=== PATIENT | male | born 1955 | race Hispanic/Latino ===

== ENCOUNTER 2017-08-30 10:43 | Inpatient (IN) | payer MEDICARE ==
[2017-08-30 11:42] LABS: Alanine Aminotransferase 8 units/L (7-56); Albumin 3.3 g/dL (3.9-5); Albumin/Globulin Ratio 0.8 %; Alkaline Phosphatase 56 units/L (35-129); Anion Gap 13 mmol/L; BUN/Creatinine Ratio 26; Basophils % (Auto) 0.4 % (0.0-1.8); Blood Urea Nitrogen 26 mg/dL (9-20); Calcium 9.2 mg/dL (8.4-10.2); Carbon Dioxide 32 mmol/L (22-30); Chloride 101.2 mmol/L (98-107); Eosinophils % (Auto) 0.5 % (0.0-4.3); Glucose 142 mg/dL (75-100); Hematocrit 32.6 % (35.5-45.6); Hemoglobin 11.1 gm/dl (11.8-15.2); Lipase 28 units/L (13-60); Mean Corpuscular HGB Conc 34 % (32-34); Mean Corpuscular Hemoglobin 29 pg (28-32); Mean Corpuscular Volume 84 fl (84-94); Platelet Count 222 K/mm3 (140-440); Potassium 4.4 mmol/L (3.6-5.0); Red Cell Distribution Width 14.9 % (13.2-15.2); Sodium 142 mmol/L (137-145); Total Protein 7.4 g/dL (6.3-8.2); White Blood Count 5.7 K/mm3 (4.5-11.0)
[2017-08-30] MEDS ORDERED: ATIVAN PO ONE (12:02)
--- NOTE | 2017-08-30 12:10 | Emergency Department Report ---
ED Anxiety HPI - General Chief Complaint: Anxiety Stated Complaint: MEDICAL CLEARENCE Time Seen by Provider: 08/30/17 11:42 Source: patient Mode of arrival: Wheelchair - History of Present Illness Initial Comments: 62-year-old male with a history of anxiety. Patient was sent from his primary care office with concern for worsening anxiety and some swelling to left lower quadrant. No fevers chills nausea vomiting. Patient denies constipation. MD Complaint: anxiety -: Gradual Previous History of Same: Yes Severity: mild Quality: constant Associated symptoms: diaphoresis, anorexia. denies: shortness of breath, palpitations, cough, fever/chills, headaches - Related Data Home Medications: Home Medications Medication Instructions Recorded Confirmed Last Taken Unobtainable [Unobtainable] 10/14/13 10/14/13 Unknown Allergies/Adverse Reactions: Allergies Allergy/AdvReac Type Severity Reaction Status Date / Time guaifenesin [From Mucinex] AdvReac Intermediate Shortness Verified 08/30/17 10: 52 of Breath ED Review of Systems ROS: Stated complaint: MEDICAL CLEARENCE Other details as noted in HPI Comment: All other systems reviewed and negative Constitutional: denies: chills, fever ENT: denies: ear pain, throat pain Respiratory: denies: cough, shortness of breath, wheezing Cardiovascular: denies: chest pain, palpitations Endocrine: no symptoms reported Gastrointestinal: denies: abdominal pain, nausea, diarrhea Genitourinary: denies: urgency, dysuria Musculoskeletal: denies: back pain, joint swelling, arthralgia Skin: denies: rash, lesions Neurological: denies: headache, weakness, paresthesias Psychiatric: denies: anxiety, depression Hematological/Lymphatic: denies: easy bleeding, easy bruising ED Past Medical Hx - Past Medical History Hx Hypertension: No Hx Psychiatric Treatment: Yes (Anxiety) Additional medical history: Chronic neck and back pain from fracture - Surgical History Past Surgical History?: Yes Additional Surgical History: Neck and back surgery - Family History Family history: no significant - Social History Smoking Status: Current Every Day Smoker Substance Use Type: None - Medications Home Medications: Home Medications Medication Instructions Recorded Confirmed Last Taken Type Unobtainable [Unobtainable] 10/14/13 10/14/13 Unknown History ED Physical Exam - General Limitations: Physical Limitation General appearance: alert, cachectic - Head Head exam: Present: atraumatic, normocephalic - Eye Eye exam: Present: normal appearance. Absent: scleral icterus, conjunctival injection - ENT ENT exam: Present: mucous membranes moist - Neck Neck exam: Present: normal inspection - Respiratory Respiratory exam: Present: normal lung sounds bilaterally. Absent: respiratory distress - Cardiovascular Cardiovascular Exam: Present: regular rate, normal rhythm. Absent: systolic murmur, diastolic murmur, rubs, gallop - GI/Abdominal GI/Abdominal exam: Present: soft, distended (LLQ), normal bowel sounds. Absent : tenderness, guarding, rebound, rigid, mass - Rectal Rectal exam: Present: deferred - Extremities Exam Extremities exam: Present: normal inspection - Back Exam Back exam: Present: normal inspection - Neurological Exam Neurological exam: Present: alert, oriented X3 - Psychiatric Psychiatric exam: Present: normal affect, normal mood - Skin Skin exam: Present: warm, dry, intact, normal color. Absent: rash ED Course Vital Signs 08/30/17 08/30/17 10:48 11:39 Temperature 97.9 F 98.1 F Pulse Rate 94 H 78 Respiratory 16 18 Rate Blood Pressure 102/60 Blood Pressure 93/54 [Left] O2 Sat by Pulse 95 95 Oximetry ED Medical Decision Making - Lab Data Result diagrams: 08/30/17 11:11 08/30/17 11:11 Laboratory Results - last 24 hr 08/30/17 08/30/17 11:11 11:11 WBC 5.7 RBC 3.90 Hgb 11.1 L Hct 32.6 L MCV 84 MCH 29 MCHC 34 RDW 14.9 Plt Count 222 Lymph % (Auto) 8.0 L [place] % (Auto) 7.2 Eos % (Auto) 0.5 Baso % (Auto) 0.4 Lymph # 0.5 L [place] # 0.4 Eos # 0.0 Baso # 0.0 Seg Neutrophils % 83.9 H Seg Neutrophils # 4.8 Sodium 142 Potassium 4.4 Chloride 101.2 Carbon Dioxide 32 H Anion Gap 13 BUN 26 H Creatinine 1.0 Estimated GFR > 60 BUN/Creatinine Ratio 26 Glucose 142 H Calcium 9.2 Total Bilirubin 0.30 AST 14 ALT 8 Alkaline Phosphatase 56 Total Protein 7.4 Albumin 3.3 L Albumin/Globulin Ratio 0.8 Lipase 28 - Medical Decision Making 62-year-old male here with complaint of anxiety and left abdominal fullness. No fevers chills nausea vomiting. He's been very anxious over the course of last few days and is having his primary care sent him to the emergency department. According to family the primary care feels that he needs to be admitted for further rehabilitation. Plan to check labs and x-ray and will reassess. Discussed with Dr. Alas and plan to admit to the hospital. Portions of this chart were dictated with dictation software. There may be dictation errors contained within this note. Critical care attestation.: If time is entered above; I have spent that time in minutes in the direct care of this critically ill patient, excluding procedure time. ED Disposition Clinical Impression: Failure to thrive Disposition: DC-09 OP ADMIT IP TO THIS HOSP Is pt being admited?: Yes Condition: Stable Referrals: PRIMARY CARE, [Primary Care Provider] - 3-5 Days
--- NOTE | 2017-08-30 13:04 | XRay Report ---
Abdominal series: History: Abdominal pain. Findings: Emphysema. No acute lung changes. No free intraperitoneal air. No bowel distention or wall thickening. No radiopaque calculus or abnormal calcification. Gastrostomy tube in place. Impression: No acute changes. No acute abdominal findings
[2017-08-30 13:27] LABS: Bilirubin,Urine NEG (Negative); Blood,Urine NEG (Negative); Ketones,Urine NEG (Negative); Leukocyte Esterase,Urine NEG (Negative); Mucus,Urine FEW /HPF; Nitrite,Urine NEG (Negative); Protein,Urine <15 mg/dL mg/dL (Negative); Urobilinogen,Urine < 2.0 mg/dL (<2.0)
[2017-08-30] MEDS ORDERED: PERCOCET 5/325 PO ONE (13:56)
[2017-08-30] MEDS ORDERED: PROVENTIL IH PRN (15:15)
[2017-08-30] MEDS ORDERED: NON-FORMULARY (Oxycodone Hcl [Oxycodone Tab] 10 MG) PO PRN (15:15)
[2017-08-30] MEDS ORDERED: CEPHULAC FEEDTUBE PRN (15:15)
[2017-08-30] MEDS ORDERED: MILK OF MAGNESIA PO PRN (15:19)
[2017-08-30] MEDS ORDERED: ZOFRAN IV PRN (15:19)
[2017-08-30] MEDS ORDERED: TYLENOL PO PRN (15:19)
[2017-08-30] MEDS ORDERED: DULCOLAX PR PRN (15:19)
[2017-08-30] MEDS ORDERED: AMBIEN PO PRN (15:25)
--- NOTE | 2017-08-30 15:35 | History and Physical Report ---
History of Present Illness Date of examination: 08/30/17 Date of admission: 08/30/17 Chief complaint: Unable to take care of himself. 2 months History of present illness: 62 y/o male with hx of C spine fracture a few months ago unable to take care of himsel for last couple of months and gradualdecline in his staus along with poor po intake and weight loss sent from my office for declining ADL' s and family unable to take care of himself.No fever /Chills Past History Past Medical History: COPD, GERD, hyperlipidemia, other (PN BPH) Past Surgical History: Other (C spine surgery) Social history: lives with family, smoking, full code Family history: hypertension Medications and Allergies Allergies Allergy/AdvReac Type Severity Reaction Status Date / Time guaifenesin [From Mucinex] AdvReac Intermediate Shortness Verified 08/30/17 10: 52 of Breath Home Medications Medication Instructions Recorded Confirmed Last Taken Type ALBUTEROL NEB's [Proventil] 2.5 mg IH QID 08/30/17 08/30/17 Unknown History Cyclobenzaprine [Flexeril] 10 mg FEEDTUBE TID PRN 08/30/17 08/30/17 Unknown History Fenofibrate [Tricor] 145 mg FEEDTUBE QDAY 08/30/17 08/30/17 Unknown History LORazepam [Ativan] 1 mg FEEDTUBE TID PRN 08/30/17 08/30/17 Unknown History Lactulose [Cephulac] 30 ml FEEDTUBE DAILY PRN 08/30/17 08/30/17 Unknown History Omeprazole 40 mg FEEDTUBE DAILY 08/30/17 08/30/17 Unknown History Oxycodone HCl [oxyCODONE TAB] 10 mg PO Q6H PRN 08/30/17 08/30/17 Unknown History Pregabalin [Lyrica] 75 mg FEEDTUBE BID 08/30/17 08/30/17 Unknown History Tamsulosin [Flomax] 0.4 mg FEEDTUBE QDAY 08/30/17 08/30/17 Unknown History Temazepam 30 mg FEEDTUBE HS 08/30/17 08/30/17 Unknown History risperiDONE [RisperDAL] 1 mg FEEDTUBE HS 08/30/17 08/30/17 Unknown History Active Meds: Active Medications Acetaminophen (Tylenol) 650 mg PO Q4H PRN PRN Reason: Pain MILD(1-3)/Fever >100.5/BYNUM Albuterol (Proventil) 2.5 mg IH Q6HRT PRN PRN Reason: Wheezing Cyclobenzaprine HCl (Flexeril) 10 mg FEEDTUBE TID PRN PRN Reason: Muscle Spasm Fenofibrate (Tricor) 145 mg FEEDTUBE QDAY NUZHAT Lactulose (Cephulac) 20 gm FEEDTUBE DAILY PRN PRN Reason: Constipation Lorazepam (Ativan) 1 mg FEEDTUBE TID PRN PRN Reason: Anxiety Miscellaneous Medication (Omeprazole [Omeprazole]) 40 mg FEEDTUBE DAILY NUZHAT Miscellaneous Medication (Oxycodone Hcl [Oxycodone Tab]) 10 mg PO Q6H PRN PRN Reason: Pain Pregabalin (Lyrica) 75 mg FEEDTUBE BID NUZHAT Review of Systems All systems: negative Constitutional: weight loss, no weight gain, no fever, no chills, no sweats, no night sweats Ears, nose, mouth and throat: no hoarseness, no sore throat Cardiovascular: no chest pain, no orthopnea, no palpitations, no rapid/ irregular heart beat, no lightheadedness, no shortness of breath Respiratory: no cough, no cough with sputum, no excessive sputum, no hemoptysis , no shortness of breath, no dyspnea on exertion Gastrointestinal: no abdominal pain, no nausea, no vomiting, no diarrhea Genitourinary Male: no dysuria, no hematuria, no flank pain, no discharge, no urinary frequency, no urinary hesitancy Rectal: no pain Musculoskeletal: neck stiffness, neck pain, arm numbness/tingling, low back pain , leg numbness/tingling Integumentary: no rash, no pruritis, no redness, no sores, no wounds, no jaundice, no boils, no blisters Neurological: no seizures, no syncope Psychiatric: anxiety, change in sleep habits Endocrine: no cold intolerance, no heat intolerance, no polyphagia, no excessive thirst Hematologic/Lymphatic: no easy bruising, no easy bleeding Allergic/Immunologic: no urticaria, no allergic rhinitis, no wheezing Exam - Physical Exam Narrative exam: Mild distress sec to pain - Constitutional Vitals: Temp Pulse Resp BP Pulse Ox 98.1 F 78 16 101/58 98 08/30/17 11:39 08/30/17 13:41 08/30/17 13:41 08/30/17 13:41 08/30/17 13:41 General appearance: Present: mild distress, well-nourished - EENT Eyes: Present: PERRL ENT: hearing intact, clear oral mucosa - Neck Neck: Present: supple, normal ROM - Respiratory Respiratory effort: normal Respiratory: bilateral: CTA - Cardiovascular Heart rate: 80 Rhythm: regular Heart Sounds: Present: S1 & S2. Absent: rub, click - Extremities Extremities: no ischemia, pulses intact, pulses symmetrical, No edema Peripheral Pulses: within normal limits - Abdominal General gastrointestinal: Present: soft, non-tender, non-distended, normal bowel sounds Male genitourinary: Present: normal - Integumentary Integumentary: Present: clear, warm, dry - Musculoskeletal Musculoskeletal: gait normal, strength equal bilaterally - Psychiatric Psychiatric: appropriate mood/affect, intact judgment & insight - Neurologic Neurologic: CNII-XII intact, moves all extremities - Allied Health Allied health notes reviewed: nursing, case management Results - Labs CBC & Chem 7: 08/31/17 06:02 08/30/17 11:11 Labs: Laboratory Last Values WBC 5.7 K/mm3 (4.5-11.0) 08/30/17 11:11 RBC 3.90 M/mm3 (3.65-5.03) 08/30/17 11:11 Hgb 11.1 gm/dl (11.8-15.2) L 08/30/17 11:11 Hct 32.6 % (35.5-45.6) L 08/30/17 11:11 MCV 84 fl (84-94) 08/30/17 11:11 MCH 29 pg (28-32) 08/30/17 11:11 MCHC 34 % (32-34) 08/30/17 11:11 RDW 14.9 % (13.2-15.2) 08/30/17 11:11 Plt Count 222 K/mm3 (140-440) 08/30/17 11:11 Lymph % (Auto) 8.0 % (13.4-35.0) L 08/30/17 11:11 [place] % (Auto) 7.2 % (0.0-7.3) 08/30/17 11:11 Eos % (Auto) 0.5 % (0.0-4.3) 08/30/17 11:11 Baso % (Auto) 0.4 % (0.0-1.8) 08/30/17 11:11 Lymph # 0.5 K/mm3 (1.2-5.4) L 08/30/17 11:11 [place] # 0.4 K/mm3 (0.0-0.8) 08/30/17 11:11 Eos # 0.0 K/mm3 (0.0-0.4) 08/30/17 11:11 Baso # 0.0 K/mm3 (0.0-0.1) 08/30/17 11:11 Seg Neutrophils % 83.9 % (40.0-70.0) H 08/30/17 11:11 Seg Neutrophils # 4.8 K/mm3 (1.8-7.7) 08/30/17 11:11 Sodium 142 mmol/L (137-145) 08/30/17 11:11 Potassium 4.4 mmol/L (3.6-5.0) 08/30/17 11:11 Chloride 101.2 mmol/L (98-107) 08/30/17 11:11 Carbon Dioxide 32 mmol/L (22-30) H 08/30/17 11:11 Anion Gap 13 mmol/L 08/30/17 11:11 BUN 26 mg/dL (9-20) H 08/30/17 11:11 Creatinine 1.0 mg/dL (0.8-1.5) 08/30/17 11:11 Estimated GFR > 60 ml/min 08/30/17 11:11 BUN/Creatinine Ratio 26 % 08/30/17 11:11 Glucose 142 mg/dL (75-100) H 08/30/17 11:11 Calcium 9.2 mg/dL (8.4-10.2) 08/30/17 11:11 Total Bilirubin 0.30 mg/dL (0.1-1.2) 08/30/17 11:11 AST 14 units/L (5-40) 08/30/17 11:11 ALT 8 units/L (7-56) 08/30/17 11:11 Alkaline Phosphatase 56 units/L (35-129) 08/30/17 11:11 Total Protein 7.4 g/dL (6.3-8.2) 08/30/17 11:11 Albumin 3.3 g/dL (3.9-5) L 08/30/17 11:11 Albumin/Globulin Ratio 0.8 % 08/30/17 11:11 Lipase 28 units/L (13-60) 08/30/17 11:11 Urine Color Yellow (Yellow) 08/30/17 12:41 Urine Turbidity Clear (Clear) 08/30/17 12:41 Urine pH 7.0 (5.0-7.0) 08/30/17 12:41 Ur Specific [place] 1.017 (1.003-1.030) 08/30/17 12:41 Urine Protein <15 mg/dl mg/dL (Negative) 08/30/17 12:41 Urine Glucose (UA) Neg mg/dL (Negative) 08/30/17 12:41 Urine Ketones Neg mg/dL (Negative) 08/30/17 12:41 Urine Blood Neg (Negative) 08/30/17 12:41 Urine Nitrite Neg (Negative) 08/30/17 12:41 Urine Bilirubin Neg (Negative) 08/30/17 12:41 Urine Urobilinogen < 2.0 mg/dL (<2.0) 08/30/17 12:41 Ur Leukocyte Esterase Neg (Negative) 08/30/17 12:41 Urine WBC (Auto) 3.0 /HPF (0.0-6.0) 08/30/17 12:41 Urine RBC (Auto) 1.0 /HPF (0.0-6.0) 08/30/17 12:41 U Epithel Cells (Auto) < 1.0 /HPF (0-13.0) 08/30/17 12:41 Amorphous Crystals Few 08/30/17 12:41 Urine Mucus Few /HPF 08/30/17 12:41 - Imaging and Cardiology EKG: report reviewed Assessment and Plan Advance Directives: Yes (Full code) VTE prophylaxis?: Chemical Plan of care discussed with patient/family: Yes - Patient Problems (1) Failure to thrive Current Visit: Yes Status: Acute Qualifiers: Failure to thrive age range: in adult Qualified Code(s): R62.7 - Adult failure to thrive Plan to address problem: Severe deterioration from last 6 months since spine surgery.Unable to take care of himself and family unable to take care of himself.Will benefit from SNF placement (2) Chronic pain due to injury Current Visit: Yes Status: Chronic Plan to address problem: Continue his pain meds (3) [place] (generalized anxiety disorder) Current Visit: Yes Status: Chronic Plan to address problem: Continue anxiolytics (4) HLD (hyperlipidemia) Current Visit: Yes Status: Chronic Qualifiers: Hyperlipidemia type: mixed hyperlipidemia Qualified Code(s): E78.2 - Mixed hyperlipidemia Plan to address problem: Cont fenofibrated (5) GERD (gastroesophageal reflux disease) Current Visit: Yes Status: Chronic Qualifiers: Esophagitis presence: without esophagitis Qualified Code(s): K21.9 - Gastro -esophageal reflux disease without esophagitis Plan to address problem: Cont ppi's (6) Peripheral neuropathy Current Visit: Yes Status: Chronic Qualifiers: Peripheral neuropathy type: polyneuropathy, unspecified Qualified Code(s): G62.9 - Polyneuropathy, unspecified Plan to address problem: Cint Lyrica (7) BPH (benign prostatic hyperplasia) Current Visit: Yes Status: Chronic Qualifiers: Lower urinary tract symptom presence: symptoms present Lower urinary tract symptom detail: urinary hesitancy Qualified Code(s): N40.1 - Benign prostatic hyperplasia with lower urinary tract symptoms; R39.11 - Hesitancy of micturition ; R39.11 - Hesitancy of micturition Plan to address problem: Cont Flomax (8) Discharge planning issues Current Visit: Yes Status: Acute Plan to address problem: Patient needs SNF/alternative arrangements.CM consulted (9) DVT prophylaxis Current Visit: Yes Status: Acute Plan to address problem: on lovenox
[2017-08-30] MEDS ORDERED: D5NS 1,000 ML IV SCH (16:00)
[2017-08-30] MEDS ORDERED: LOVENOX SUB-Q SCH (16:00)
[2017-08-30] MEDS ORDERED: DILAUDID ONE (17:28)
[2017-08-30] MEDS: DILAUDID IV PRN (17:29)
[2017-08-30] MEDS: ROXICODONE PO PRN (19:17)
[2017-08-30] MEDS: LOVENOX SUB-Q SCH (19:18)
[2017-08-30] MEDS: PROTONIX FEEDTUBE SCH (19:18)
[2017-08-30] MEDS ORDERED: SODIUM BICARBONATE FEEDTUBE PRN (20:23)
[2017-08-30] MEDS ORDERED: SIMPLE SYRUP FEEDTUBE PRN ×2 (20:23)
[2017-08-30] MEDS ORDERED: PANCREAZE DR 10,500 UNIT FEEDTUBE PRN (20:23)
[2017-08-30] MEDS: FLEXERIL FEEDTUBE PRN (22:29)
[2017-08-30] MEDS: LYRICA FEEDTUBE SCH (22:29)
[2017-08-30] MEDS: ATIVAN FEEDTUBE PRN (22:29)
[2017-08-31] MEDS: ROXICODONE PO PRN ×2 (03:01→09:28)
[2017-08-31 06:35] LABS: Basophils % (Auto) 0.6 % (0.0-1.8); Eosinophils % (Auto) 1.3 % (0.0-4.3); Hematocrit 32.8 % (35.5-45.6); Mean Corpuscular HGB Conc 34 % (32-34); Mean Corpuscular Hemoglobin 28 pg (28-32); Mean Corpuscular Volume 85 fl (84-94); Platelet Count 193 K/mm3 (140-440); Red Blood Count 3.88 M/mm3 (3.65-5.03); Red Cell Distribution Width 14.8 % (13.2-15.2); White Blood Count 5.2 K/mm3 (4.5-11.0)
[2017-08-31 08:36] LABS: Alanine Aminotransferase 8 units/L (7-56); Albumin 3.2 g/dL (3.9-5); Albumin/Globulin Ratio 0.9 %; Alkaline Phosphatase 52 units/L (35-129); Anion Gap 13 mmol/L; BUN/Creatinine Ratio 26; Blood Urea Nitrogen 23 mg/dL (9-20); Calcium 9.3 mg/dL (8.4-10.2); Carbon Dioxide 33 mmol/L (22-30); Chloride 102.1 mmol/L (98-107); Glucose 100 mg/dL (75-100); Sodium 144 mmol/L (137-145); Total Protein 6.9 g/dL (6.3-8.2)
[2017-08-31] MEDS: LOVENOX SUB-Q SCH (09:26)
[2017-08-31] MEDS: LYRICA FEEDTUBE SCH ×2 (09:26→22:29)
[2017-08-31] MEDS: FLOMAX PO SCH (09:26)
[2017-08-31] MEDS: TRICOR FEEDTUBE SCH (09:26)
[2017-08-31] MEDS: ATIVAN FEEDTUBE PRN ×3 (09:27→20:43)
[2017-08-31] MEDS: PROTONIX FEEDTUBE SCH (09:27)
[2017-08-31] MEDS: HABITROL TD SCH (09:27)
[2017-08-31] MEDS ORDERED: NON-FORMULARY (Omeprazole [Omeprazole] 40 MG) FEEDTUBE SCH (10:00)
[2017-08-31] MEDS ORDERED: PANCREAZE DR 10,500 UNIT FEEDTUBE PRN (11:39)
[2017-08-31] MEDS ORDERED: SODIUM BICARBONATE FEEDTUBE PRN (11:39)
[2017-08-31] MEDS ORDERED: SIMPLE SYRUP FEEDTUBE PRN ×2 (11:39)
[2017-08-31] MEDS: DILAUDID IV PRN ×2 (13:36→20:47)
--- NOTE | 2017-08-31 13:47 | Progress Note ---
Assessment and Plan Assessment and plan: 62 y/o male with hx of C spine fracture a few months ago unable to take care of himself for last couple of months and gradual decline in his status along with poor po intake and weight loss sent from pcp office for declining ADL's and family unable to take care of himself.No fever /Chills (1) Failure to thrive Current Visit: Yes Status: Acute Qualifiers: Failure to thrive age range: in adult Qualified Code(s): R62.7 - Adult failure to thrive Plan to address problem: Severe deterioration from last 6 months since spine surgery.Unable to take care of himself and family unable to take care of himself. Nutrition consult PT.OT eval and treat Patient on Tube feeds. 08. Albumin Fall precautions (2) Chronic pain due to injury Current Visit: Yes Status: Chronic Plan to address problem: Continue his pain meds (3) [place] (generalized anxiety disorder) Current Visit: Yes Status: Chronic Plan to address problem: Continue anxiolytics Patient refused outpatient referral from psych department states that he has a psych physician outpatient thyroid. (4) HLD (hyperlipidemia) Current Visit: Yes Status: Chronic Qualifiers: Hyperlipidemia type: mixed hyperlipidemia Qualified Code(s): E78.2 - Mixed hyperlipidemia Plan to address problem: Cont fenofibrated (5) GERD (gastroesophageal reflux disease) Current Visit: Yes Status: Chronic Qualifiers: Esophagitis presence: without esophagitis Qualified Code(s): K21.9 - Gastro -esophageal reflux disease without esophagitis Plan to address problem: Cont ppi's (6) Peripheral neuropathy Current Visit: Yes Status: Chronic Qualifiers: Peripheral neuropathy type: polyneuropathy, unspecified Qualified Code(s): G62.9 - Polyneuropathy, unspecified Plan to address problem: Cint Lyrica (7) BPH (benign prostatic hyperplasia) Current Visit: Yes Status: Chronic Qualifiers: Lower urinary tract symptom presence: symptoms present Lower urinary tract symptom detail: urinary hesitancy Qualified Code(s): N40.1 - Benign prostatic hyperplasia with lower urinary tract symptoms; R39.11 - Hesitancy of micturition ; R39.11 - Hesitancy of micturition Plan to address problem: Cont Flomax (8) Discharge planning issues Current Visit: Yes Status: Acute Plan to address problem: Patient needs SNF/alternative arrangements.CM consulted DVT prophylaxis Current Visit: Yes Status: Acute Plan to address problem: on lovenox History Interval history: Patient seen and examined in no acute distress but verbalizes anxiety. Denies any chest pain nausea vomiting of operation. Hospitalist Physical - Physical exam Narrative exam: VITAL SIGNS: Reviewed. GENERAL: The patient appeared well nourished and normally developed. Vital signs as documented. HEAD: No signs of head trauma. Marked temporal wasting EYES: Pupils are equal. Extraocular motions intact. EARS: Hearing grossly intact. MOUTH: Oropharynx is normal. NECK: No adenopathy, no JVD. CHEST: Chest with clear breath sounds bilaterally. No wheezes, rales, or rhonchi. CARDIAC: Regular rate and rhythm. S1 and S2, without murmurs, gallops, or rubs. VASCULAR: Trace bilateral Edema. Peripheral pulses normal and equal in all extremities. ABDOMEN: Soft, without detectable tenderness. No sign of distention. No rebound or guarding, and no masses palpated. Bowel Sounds normal. MUSCULOSKELETAL: Good range of motion of all major joints. Extremities without clubbing, cyanosis. Trace bilateral lower extremity edema. NEUROLOGIC EXAM: Alert and oriented x 3. No focal sensory or strength deficits. Speech normal. Follows commands. PSYCHIATRIC: Mood anxious. SKIN: Chronic venous changes left lower extremity.. - Constitutional Vitals: Temp Pulse Resp BP Pulse Ox 98.3 F 80 18 111/54 98 08/30/17 20:58 08/30/17 22:00 08/30/17 22:00 08/30/17 20:58 08/30/17 22:00 General appearance: Present: mild distress, well-nourished Results - Labs CBC & Chem 7: 08/31/17 06:02 08/31/17 06:02 Labs: Laboratory Last Values WBC 5.2 K/mm3 (4.5-11.0) 08/31/17 06:02 RBC 3.88 M/mm3 (3.65-5.03) 08/31/17 06:02 Hgb 11.0 gm/dl (11.8-15.2) L 08/31/17 06:02 Hct 32.8 % (35.5-45.6) L 08/31/17 06:02 MCV 85 fl (84-94) 08/31/17 06:02 MCH 28 pg (28-32) 08/31/17 06:02 MCHC 34 % (32-34) 08/31/17 06:02 RDW 14.8 % (13.2-15.2) 08/31/17 06:02 Plt Count 193 K/mm3 (140-440) 08/31/17 06:02 Lymph % (Auto) 19.1 % (13.4-35.0) 08/31/17 06:02 [place] % (Auto) 9.0 % (0.0-7.3) H 08/31/17 06:02 Eos % (Auto) 1.3 % (0.0-4.3) 08/31/17 06:02 Baso % (Auto) 0.6 % (0.0-1.8) 08/31/17 06:02 Lymph # 1.0 K/mm3 (1.2-5.4) L 08/31/17 06:02 [place] # 0.5 K/mm3 (0.0-0.8) 08/31/17 06:02 Eos # 0.1 K/mm3 (0.0-0.4) 08/31/17 06:02 Baso # 0.0 K/mm3 (0.0-0.1) 08/31/17 06:02 Seg Neutrophils % 70.0 % (40.0-70.0) 08/31/17 06:02 Seg Neutrophils # 3.7 K/mm3 (1.8-7.7) 08/31/17 06:02 Sodium 144 mmol/L (137-145) 08/31/17 06:02 Potassium 4.0 mmol/L (3.6-5.0) 08/31/17 06:02 Chloride 102.1 mmol/L (98-107) 08/31/17 06:02 Carbon Dioxide 33 mmol/L (22-30) H 08/31/17 06:02 Anion Gap 13 mmol/L 08/31/17 06:02 BUN 23 mg/dL (9-20) H 08/31/17 06:02 Creatinine 0.9 mg/dL (0.8-1.5) 08/31/17 06:02 Estimated GFR > 60 ml/min 08/31/17 06:02 BUN/Creatinine Ratio 26 % 08/31/17 06:02 Glucose 100 mg/dL (75-100) 08/31/17 06:02 Hemoglobin A1c 5.5 % (4-6) 08/30/17 11:11 Calcium 9.3 mg/dL (8.4-10.2) 08/31/17 06:02 Total Bilirubin 0.20 mg/dL (0.1-1.2) 08/31/17 06:02 AST 14 units/L (5-40) 08/31/17 06:02 ALT 8 units/L (7-56) 08/31/17 06:02 Alkaline Phosphatase 52 units/L (35-129) 08/31/17 06:02 Total Protein 6.9 g/dL (6.3-8.2) 08/31/17 06:02 Albumin 3.2 g/dL (3.9-5) L 08/31/17 06:02 Albumin/Globulin Ratio 0.9 % 08/31/17 06:02 Lipase 28 units/L (13-60) 08/30/17 11:11 Urine Color Yellow (Yellow) 08/30/17 12:41 Urine Turbidity Clear (Clear) 08/30/17 12:41 Urine pH 7.0 (5.0-7.0) 08/30/17 12:41 Ur Specific [place] 1.017 (1.003-1.030) 08/30/17 12:41 Urine Protein <15 mg/dl mg/dL (Negative) 08/30/17 12:41 Urine Glucose (UA) Neg mg/dL (Negative) 08/30/17 12:41 Urine Ketones Neg mg/dL (Negative) 08/30/17 12:41 Urine Blood Neg (Negative) 08/30/17 12:41 Urine Nitrite Neg (Negative) 08/30/17 12:41 Urine Bilirubin Neg (Negative) 08/30/17 12:41 Urine Urobilinogen < 2.0 mg/dL (<2.0) 08/30/17 12:41 Ur Leukocyte Esterase Neg (Negative) 08/30/17 12:41 Urine WBC (Auto) 3.0 /HPF (0.0-6.0) 08/30/17 12:41 Urine RBC (Auto) 1.0 /HPF (0.0-6.0) 08/30/17 12:41 U Epithel Cells (Auto) < 1.0 /HPF (0-13.0) 08/30/17 12:41 Amorphous Crystals Few 08/30/17 12:41 Urine Mucus Few /HPF 08/30/17 12:41 - Imaging and Cardiology Chest x-ray: image reviewed (no acute pathology) Abdominal x-ray: image reviewed (no acute pathology)
[2017-08-31] MEDS: FLEXERIL FEEDTUBE PRN (20:49)
[2017-09-01] MEDS: DILAUDID IV PRN ×5 (05:22→22:07)
--- NOTE | 2017-09-01 08:32 | Progress Note ---
Assessment and Plan Assessment and plan: 62 y/o male with hx of C spine fracture a few months ago unable to take care of himself for last couple of months and gradual decline in his status along with poor po intake and weight loss sent from pcp office for declining ADL's and family unable to take care of himself. No fever /Chills. Patient states unable to move since c spine injury and has been bed bound (1) Failure to thrive Current Visit: Yes Status: Acute Qualifiers: Failure to thrive age range: in adult Qualified Code(s): R62.7 - Adult failure to thrive Plan to address problem: Severe deterioration from last 6 months since spine surgery.Unable to take care of himself and family unable to take care of himself. Nutrition consult-consider reevaluation of tube feeds. On admission patient was given his feeds while he was at home with by himself. Vitals are stable, await PT.OT eval and treat Patient on Tube feeds. 08. 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 (4) HLD (hyperlipidemia) Current Visit: Yes Status: Chronic Qualifiers: Hyperlipidemia type: mixed hyperlipidemia Qualified Code(s): E78.2 - Mixed hyperlipidemia Plan to address problem: Cont fenofibrated (5) GERD (gastroesophageal reflux disease) Current Visit: Yes Status: Chronic Qualifiers: Esophagitis presence: without esophagitis Qualified Code(s): K21.9 - Gastro -esophageal reflux disease without esophagitis Plan to address problem: Cont ppi's (6) Peripheral neuropathy Current Visit: Yes Status: Chronic Qualifiers: Peripheral neuropathy type: polyneuropathy, unspecified Qualified Code(s): G62.9 - Polyneuropathy, unspecified Plan to address problem: Cint Lyrica (7) BPH (benign prostatic hyperplasia) Current Visit: Yes Status: Chronic Qualifiers: Lower urinary tract symptom presence: symptoms present Lower urinary tract symptom detail: urinary hesitancy Qualified Code(s): N40.1 - Benign prostatic hyperplasia with lower urinary tract symptoms; R39.11 - Hesitancy of micturition ; R39.11 - Hesitancy of micturition Plan to address problem: Cont Flomax (8) complete immobility due to frailty * PT/OT eval (9) Discharge planning issues Current Visit: Yes Status: Acute Plan to address problem: Patient needs SNF/alternative arrangements.CM consulted DVT prophylaxis Current Visit: Yes Status: Acute Plan to address problem: on lovenox Plan discussed with the patient's anticipated discharge in a.m Will discuss with patients PCP. History Interval history: Patient seen and examined in no acute distress, continues to complain of anxiety. Refusing fdc placement, states his sister takes care of him, patient. Denies any chest pain nausea vomiting of operation. Hospitalist Physical - Physical exam Narrative exam: VITAL SIGNS: Reviewed. GENERAL: The patient appeared well nourished and normally developed. Vital signs as documented. HEAD: No signs of head trauma. Marked temporal wasting EYES: Pupils are equal. Extraocular motions intact. EARS: Hearing grossly intact. MOUTH: Oropharynx is normal. NECK: No adenopathy, no JVD. CHEST: Chest with clear breath sounds bilaterally. No wheezes, rales, or rhonchi. CARDIAC: Regular rate and rhythm. S1 and S2, without murmurs, gallops, or rubs. VASCULAR: Trace bilateral Edema. Peripheral pulses normal and equal in all extremities. ABDOMEN: Soft, without detectable tenderness. No sign of distention. No rebound or guarding, and no masses palpated. Bowel Sounds normal. MUSCULOSKELETAL: Good range of motion of all major joints. Extremities without clubbing, cyanosis. Trace bilateral lower extremity edema. NEUROLOGIC EXAM: Alert and oriented x 3. No focal sensory or strength deficits. Speech normal.Non mobile PSYCHIATRIC: Mood anxious. SKIN: Chronic venous changes left lower extremity.. - Constitutional Vitals: Temp Pulse Resp BP Pulse Ox 98.5 F 78 18 138/60 96 09/01/17 08:03 09/01/17 08:03 09/01/17 08:03 09/01/17 08:03 09/01/17 08:03 General appearance: Present: mild distress, well-nourished Results - Labs CBC & Chem 7: 08/31/17 06:02 08/31/17 06:02 Labs: Laboratory Last Values WBC 5.2 K/mm3 (4.5-11.0) 08/31/17 06:02 RBC 3.88 M/mm3 (3.65-5.03) 08/31/17 06:02 Hgb 11.0 gm/dl (11.8-15.2) L 08/31/17 06:02 Hct 32.8 % (35.5-45.6) L 08/31/17 06:02 MCV 85 fl (84-94) 08/31/17 06:02 MCH 28 pg (28-32) 08/31/17 06:02 MCHC 34 % (32-34) 08/31/17 06:02 RDW 14.8 % (13.2-15.2) 08/31/17 06:02 Plt Count 193 K/mm3 (140-440) 08/31/17 06:02 Lymph % (Auto) 19.1 % (13.4-35.0) 08/31/17 06:02 [place] % (Auto) 9.0 % (0.0-7.3) H 08/31/17 06:02 Eos % (Auto) 1.3 % (0.0-4.3) 08/31/17 06:02 Baso % (Auto) 0.6 % (0.0-1.8) 08/31/17 06:02 Lymph # 1.0 K/mm3 (1.2-5.4) L 08/31/17 06:02 [place] # 0.5 K/mm3 (0.0-0.8) 08/31/17 06:02 Eos # 0.1 K/mm3 (0.0-0.4) 08/31/17 06:02 Baso # 0.0 K/mm3 (0.0-0.1) 08/31/17 06:02 Seg Neutrophils % 70.0 % (40.0-70.0) 08/31/17 06:02 Seg Neutrophils # 3.7 K/mm3 (1.8-7.7) 08/31/17 06:02 Sodium 144 mmol/L (137-145) 08/31/17 06:02 Potassium 4.0 mmol/L (3.6-5.0) 08/31/17 06:02 Chloride 102.1 mmol/L (98-107) 08/31/17 06:02 Carbon Dioxide 33 mmol/L (22-30) H 08/31/17 06:02 Anion Gap 13 mmol/L 08/31/17 06:02 BUN 23 mg/dL (9-20) H 08/31/17 06:02 Creatinine 0.9 mg/dL (0.8-1.5) 08/31/17 06:02 Estimated GFR > 60 ml/min 08/31/17 06:02 BUN/Creatinine Ratio 26 % 08/31/17 06:02 Glucose 100 mg/dL (75-100) 08/31/17 06:02 Hemoglobin A1c 5.5 % (4-6) 08/30/17 11:11 Calcium 9.3 mg/dL (8.4-10.2) 08/31/17 06:02 Total Bilirubin 0.20 mg/dL (0.1-1.2) 08/31/17 06:02 AST 14 units/L (5-40) 08/31/17 06:02 ALT 8 units/L (7-56) 08/31/17 06:02 Alkaline Phosphatase 52 units/L (35-129) 08/31/17 06:02 Total Protein 6.9 g/dL (6.3-8.2) 08/31/17 06:02 Albumin 3.2 g/dL (3.9-5) L 08/31/17 06:02 Albumin/Globulin Ratio 0.9 % 08/31/17 06:02 Lipase 28 units/L (13-60) 08/30/17 11:11 TSH 1.570 mlU/mL (0.270-4.200) 09/01/17 04:55 Free T4 1.38 ng/dL (0.76-1.46) 09/01/17 04:55 Urine Color Yellow (Yellow) 08/30/17 12:41 Urine Turbidity Clear (Clear) 08/30/17 12:41 Urine pH 7.0 (5.0-7.0) 08/30/17 12:41 Ur Specific [place] 1.017 (1.003-1.030) 08/30/17 12:41 Urine Protein <15 mg/dl mg/dL (Negative) 08/30/17 12:41 Urine Glucose (UA) Neg mg/dL (Negative) 08/30/17 12:41 Urine Ketones Neg mg/dL (Negative) 08/30/17 12:41 Urine Blood Neg (Negative) 08/30/17 12:41 Urine Nitrite Neg (Negative) 08/30/17 12:41 Urine Bilirubin Neg (Negative) 08/30/17 12:41 Urine Urobilinogen < 2.0 mg/dL (<2.0) 08/30/17 12:41 Ur Leukocyte Esterase Neg (Negative) 08/30/17 12:41 Urine WBC (Auto) 3.0 /HPF (0.0-6.0) 08/30/17 12:41 Urine RBC (Auto) 1.0 /HPF (0.0-6.0) 08/30/17 12:41 U Epithel Cells (Auto) < 1.0 /HPF (0-13.0) 08/30/17 12:41 Amorphous Crystals Few 08/30/17 12:41 Urine Mucus Few /HPF 08/30/17 12:41
[2017-09-01] MEDS: HABITROL TD SCH (09:52)
[2017-09-01] MEDS: FLOMAX PO SCH (09:52)
[2017-09-01] MEDS: ATIVAN FEEDTUBE PRN ×2 (09:53→22:06)
[2017-09-01] MEDS: PROTONIX FEEDTUBE SCH (09:53)
[2017-09-01] MEDS: LYRICA FEEDTUBE SCH ×2 (09:53→22:07)
[2017-09-01] MEDS: LOVENOX SUB-Q SCH (09:53)
[2017-09-01] MEDS: TRICOR FEEDTUBE SCH (09:53)
[2017-09-01] MEDS: FLEXERIL FEEDTUBE PRN (22:06)
[2017-09-02] MEDS: DILAUDID IV PRN ×4 (03:58→21:33)
[2017-09-02] MEDS: FLOMAX PO SCH (09:06)
[2017-09-02] MEDS: HABITROL TD SCH (09:06)
[2017-09-02] MEDS: TRICOR FEEDTUBE SCH (09:06)
[2017-09-02] MEDS: PROTONIX FEEDTUBE SCH (09:06)
[2017-09-02] MEDS: LOVENOX SUB-Q SCH (09:06)
[2017-09-02] MEDS: LYRICA FEEDTUBE SCH ×2 (09:07→21:35)
--- NOTE | 2017-09-02 09:57 | Discharge Summary ---
Providers - Providers Date of Admission: 08/30/17 15:19 Attending physician: CANDELARIA SHEPARD MD 08/30/17 20:23 Consult to Dietitian/Nutrition [CONS] Routine Physician Instructions: Assess nutrtn needs, initiate, modify, manage TF Reason For Exam: Reason for Consult: Write/Manage Tube Feeding Reason for Consult: Write/Manage Tube Feeding 08/31/17 07:00 Consult to Dietitian/Nutrition [CONS] Routine Physician Instructions: Reason For Exam: Reason for Consult: Write/Manage Tube Feeding 08/31/17 13:48 Occupational Therapy Evaluate and Treat [CONS] Routine Comment: Reason For Exam: snf assess Physical Therapy Evaluation and Treat [CONS] Routine Comment: Reason For Exam: snf assess 08/31/17 13:53 Consult to Mental Health [CONS] Routine Reason For Exam: ANXIETY Place consult to:: MENTAL HEALTH Notified:: yes Phone number called:: [phone] If yes, spoke with:: Juliet Time called:: 16:20 08/31/17 15:15 Consult to Case Management [CONS] Routine Services Needed at Discharge: Home Health Services Other Notified:: COPY LEFT TO Comment:: SNF placement Primary care physician: [facility] Hospitalization Reason for admission: anxiety Condition: Stable Hospital course: 62 y/o male with hx of C spine fracture a few months ago unable to take care of himself for last couple of months and gradual decline in his status along with poor po intake and weight loss sent from pcp office for declining ADL's and family unable to take care of himself. No fever /Chills. Patient states unable to move since c spine injury and has been bed bound on admission the patient was thoroughly evaluated. The patient reports that he gets fed by his sister brought from all accounts and purposes it appears that sometimes his meal and missed his family is concerned that he cannot provide the care he needs. He is constantly in an anxious old. He was seen by psychiatry facility but refused the outpatient referral he has his own psychiatrist. We'll continue to monitor his home medication. He does have a sense of impending doom. I did advise to keep the head of the bed greater than 45 to prevent aspiration. But the patient would rather be laying down flat. This was counseled against. He is currently stable for discharge to inpatient facility for increased level of care. While in the hospital while awaiting insurance approval. Skilled patient continued to have physical therapy evaluation. He appears to be doing well and stable for discharge home. Case management has discussed with family the patient could actually do more. They are agreeable to bring the patient back home with home health. Recommend ensuring adequate intake for nutrition via the PEG tube. Also recommended close follow-up with psychiatrist outpatient to manage patient's anxiety. 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 GENERAL: The patient appeared well nourished and normally developed. Vital signs as documented. HEAD: No signs of head trauma. Marked temporal wasting EYES: Pupils are equal. Extraocular motions intact. EARS: Hearing grossly intact. MOUTH: Oropharynx is normal. NECK: No adenopathy, no JVD. CHEST: Chest with clear breath sounds bilaterally. No wheezes, rales, or rhonchi. CARDIAC: Regular rate and rhythm. S1 and S2, without murmurs, gallops, or rubs. VASCULAR: Trace bilateral Edema. Peripheral pulses normal and equal in all extremities. ABDOMEN: Soft, without detectable tenderness. No sign of distention. No rebound or guarding, and no masses palpated. Bowel Sounds normal. MUSCULOSKELETAL: Good range of motion of all major joints. Extremities without clubbing, cyanosis. Trace bilateral lower extremity edema. NEUROLOGIC EXAM: Alert and oriented x 3. No focal sensory or strength deficits. Speech normal.Non mobile PSYCHIATRIC: Mood anxious. SKIN: Chronic venous changes left lower extremity.. - Constitutional Vitals: Temp Pulse Resp BP Pulse Ox 97.6 F 74 18 129/64 98 09/02/17 08:01 09/02/17 08:01 09/02/17 08:01 09/02/17 08:01 09/02/17 08:01 Plan Activity: no restrictions, advance as tolerated, fall precautions Diet: low fat, per dietitian instruction, other (Tube feed) Special Instructions: physical therapy, occupational therapy Additional Instructions: Follow with personal psychiatrist IN 3-5 DAYs for management of anxiety Follow up with: PRIMARY CARE,MD [Primary Care Provider] - 3-5 Days DARCIE KWAN MD [Staff Physician] - 7 Days Prescriptions: LORazepam [Ativan] 1 mg FEEDTUBE TID PRN #14 tablet PRN Reason: Anxiety oxyCODONE [Roxicodone TAB] 10 mg PO Q6H PRN #10 tablet PRN Reason: Pain, Moderate (4-6)
[2017-09-02] MEDS: ATIVAN FEEDTUBE PRN ×2 (10:10→18:52)
[2017-09-02] MEDS ORDERED: ATIVAN IV ONE (12:08)
--- NOTE | 2017-09-02 14:39 | Progress Note ---
Assessment and Plan Assessment and plan: 62 y/o male with hx of C spine fracture a few months ago unable to take care of himself for last couple of months and gradual decline in his status along with poor po intake and weight loss sent from pcp office for declining ADL's and family unable to take care of himself. No fever /Chills. Patient states unable to move since c spine injury and has been bed bound (1) Failure to thrive Current Visit: Yes Status: Acute Qualifiers: Failure to thrive age range: in adult Qualified Code(s): R62.7 - Adult failure to thrive Plan to address problem: Severe deterioration from last 6 months since spine surgery.Unable to take care of himself and family unable to take care of himself. Nutrition consult-consider reevaluation of tube feeds. On admission patient was given his feeds while he was at home with by himself. Vitals are stable, await PT.OT eval and treat Patient on Tube feeds. 08. 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 (4) HLD (hyperlipidemia) Current Visit: Yes Status: Chronic Qualifiers: Hyperlipidemia type: mixed hyperlipidemia Qualified Code(s): E78.2 - Mixed hyperlipidemia Plan to address problem: Cont fenofibrated (5) GERD (gastroesophageal reflux disease) Current Visit: Yes Status: Chronic Qualifiers: Esophagitis presence: without esophagitis Qualified Code(s): K21.9 - Gastro -esophageal reflux disease without esophagitis Plan to address problem: Cont ppi's (6) Peripheral neuropathy Current Visit: Yes Status: Chronic Qualifiers: Peripheral neuropathy type: polyneuropathy, unspecified Qualified Code(s): G62.9 - Polyneuropathy, unspecified Plan to address problem: Cint Lyrica (7) BPH (benign prostatic hyperplasia) Current Visit: Yes Status: Chronic Qualifiers: Lower urinary tract symptom presence: symptoms present Lower urinary tract symptom detail: urinary hesitancy Qualified Code(s): N40.1 - Benign prostatic hyperplasia with lower urinary tract symptoms; R39.11 - Hesitancy of micturition ; R39.11 - Hesitancy of micturition Plan to address problem: Cont Flomax (8) complete immobility due to frailty * PT/OT eval (9) Discharge planning issues Current Visit: Yes Status: Acute Plan to address problem: Patient needs SNF/alternative arrangements.CM consulted DVT prophylaxis Current Visit: Yes Status: Acute Plan to address problem: on lovenox Plan discussed with the patient's anticipated discharge in a.m Will discuss with patients PCP. History Interval history: Patient seen and examined in no acute distress, continues to complain of anxiety. sister is adamant that she cannot take care of him. Hospitalist Physical - Physical exam Narrative exam: VITAL SIGNS: Reviewed. GENERAL: The patient appeared well nourished and normally developed. Vital signs as documented. HEAD: No signs of head trauma. Marked temporal wasting EYES: Pupils are equal. Extraocular motions intact. EARS: Hearing grossly intact. MOUTH: Oropharynx is normal. NECK: No adenopathy, no JVD. CHEST: Chest with clear breath sounds bilaterally. No wheezes, rales, or rhonchi. CARDIAC: Regular rate and rhythm. S1 and S2, without murmurs, gallops, or rubs. VASCULAR: Trace bilateral Edema. Peripheral pulses normal and equal in all extremities. ABDOMEN: Soft, without detectable tenderness. No sign of distention. No rebound or guarding, and no masses palpated. Bowel Sounds normal. MUSCULOSKELETAL: Good range of motion of all major joints. Extremities without clubbing, cyanosis. Trace bilateral lower extremity edema. NEUROLOGIC EXAM: Alert and oriented x 3. No focal sensory or strength deficits. Speech normal.Non mobile PSYCHIATRIC: Mood anxious. SKIN: Chronic venous changes left lower extremity.. - Constitutional Vitals: Temp Pulse Resp BP Pulse Ox 97.6 F 74 18 129/64 98 09/02/17 08:01 09/02/17 08:01 09/02/17 08:01 09/02/17 08:01 09/02/17 08:01 General appearance: Present: mild distress, well-nourished Results - Labs CBC & Chem 7: 08/31/17 06:02 08/31/17 06:02 Labs: Laboratory Last Values WBC 5.2 K/mm3 (4.5-11.0) 08/31/17 06:02 RBC 3.88 M/mm3 (3.65-5.03) 08/31/17 06:02 Hgb 11.0 gm/dl (11.8-15.2) L 08/31/17 06:02 Hct 32.8 % (35.5-45.6) L 08/31/17 06:02 MCV 85 fl (84-94) 08/31/17 06:02 MCH 28 pg (28-32) 08/31/17 06:02 MCHC 34 % (32-34) 08/31/17 06:02 RDW 14.8 % (13.2-15.2) 08/31/17 06:02 Plt Count 193 K/mm3 (140-440) 08/31/17 06:02 Lymph % (Auto) 19.1 % (13.4-35.0) 08/31/17 06:02 [place] % (Auto) 9.0 % (0.0-7.3) H 08/31/17 06:02 Eos % (Auto) 1.3 % (0.0-4.3) 08/31/17 06:02 Baso % (Auto) 0.6 % (0.0-1.8) 08/31/17 06:02 Lymph # 1.0 K/mm3 (1.2-5.4) L 08/31/17 06:02 [place] # 0.5 K/mm3 (0.0-0.8) 08/31/17 06:02 Eos # 0.1 K/mm3 (0.0-0.4) 08/31/17 06:02 Baso # 0.0 K/mm3 (0.0-0.1) 08/31/17 06:02 Seg Neutrophils % 70.0 % (40.0-70.0) 08/31/17 06:02 Seg Neutrophils # 3.7 K/mm3 (1.8-7.7) 08/31/17 06:02 Sodium 144 mmol/L (137-145) 08/31/17 06:02 Potassium 4.0 mmol/L (3.6-5.0) 08/31/17 06:02 Chloride 102.1 mmol/L (98-107) 08/31/17 06:02 Carbon Dioxide 33 mmol/L (22-30) H 08/31/17 06:02 Anion Gap 13 mmol/L 08/31/17 06:02 BUN 23 mg/dL (9-20) H 08/31/17 06:02 Creatinine 0.9 mg/dL (0.8-1.5) 08/31/17 06:02 Estimated GFR > 60 ml/min 08/31/17 06:02 BUN/Creatinine Ratio 26 % 08/31/17 06:02 Glucose 100 mg/dL (75-100) 08/31/17 06:02 Hemoglobin A1c 5.5 % (4-6) 08/30/17 11:11 Calcium 9.3 mg/dL (8.4-10.2) 08/31/17 06:02 Total Bilirubin 0.20 mg/dL (0.1-1.2) 08/31/17 06:02 AST 14 units/L (5-40) 08/31/17 06:02 ALT 8 units/L (7-56) 08/31/17 06:02 Alkaline Phosphatase 52 units/L (35-129) 08/31/17 06:02 Total Protein 6.9 g/dL (6.3-8.2) 08/31/17 06:02 Albumin 3.2 g/dL (3.9-5) L 08/31/17 06:02 Albumin/Globulin Ratio 0.9 % 08/31/17 06:02 Lipase 28 units/L (13-60) 08/30/17 11:11 TSH 1.570 mlU/mL (0.270-4.200) 09/01/17 04:55 Free T4 1.38 ng/dL (0.76-1.46) 09/01/17 04:55 Urine Color Yellow (Yellow) 08/30/17 12:41 Urine Turbidity Clear (Clear) 08/30/17 12:41 Urine pH 7.0 (5.0-7.0) 08/30/17 12:41 Ur Specific [place] 1.017 (1.003-1.030) 08/30/17 12:41 Urine Protein <15 mg/dl mg/dL (Negative) 08/30/17 12:41 Urine Glucose (UA) Neg mg/dL (Negative) 08/30/17 12:41 Urine Ketones Neg mg/dL (Negative) 08/30/17 12:41 Urine Blood Neg (Negative) 08/30/17 12:41 Urine Nitrite Neg (Negative) 08/30/17 12:41 Urine Bilirubin Neg (Negative) 08/30/17 12:41 Urine Urobilinogen < 2.0 mg/dL (<2.0) 08/30/17 12:41 Ur Leukocyte Esterase Neg (Negative) 08/30/17 12:41 Urine WBC (Auto) 3.0 /HPF (0.0-6.0) 08/30/17 12:41 Urine RBC (Auto) 1.0 /HPF (0.0-6.0) 08/30/17 12:41 U Epithel Cells (Auto) < 1.0 /HPF (0-13.0) 08/30/17 12:41 Amorphous Crystals Few 08/30/17 12:41 Urine Mucus Few /HPF 08/30/17 12:41
[2017-09-02] MEDS: FLEXERIL FEEDTUBE PRN (21:35)
[2017-09-03] MEDS: DILAUDID IV PRN ×2 (02:38→08:42)
[2017-09-03] MEDS: ATIVAN FEEDTUBE PRN ×2 (05:11→13:21)
[2017-09-03] MEDS: FLEXERIL FEEDTUBE PRN (10:39)
[2017-09-03] MEDS: LOVENOX SUB-Q SCH (10:39)
[2017-09-03] MEDS: TRICOR FEEDTUBE SCH (10:39)
[2017-09-03] MEDS: HABITROL TD SCH (10:39)
[2017-09-03] MEDS: LYRICA FEEDTUBE SCH (10:39)
[2017-09-03] MEDS: PROTONIX FEEDTUBE SCH (10:39)
[2017-09-03] MEDS: FLOMAX PO SCH (10:39)
[2017-09-03 11:47] VITALS: BP 125/65
== END 2017-09-03 14:11 | disposition home health service (06) | DRG 640 ==
LOC: ED 10:43 → 3A 15:19
PROVIDERS: ADMIT Internal Medicine; ATTEND Internal Medicine
DX: R62.7 Adult failure to thrive (principal); R53.2 Functional quadriplegia; K21.9 Gastro-esophageal reflux disease without esophagitis; G89.21 Chronic pain due to trauma; F41.1 Generalized anxiety disorder; E78.5 Hyperlipidemia, unspecified; G62.9 Polyneuropathy, unspecified; N40.0 Benign prostatic hyperplasia without lower urinary tract symptoms; F17.200 Nicotine dependence, unspecified, uncomplicated; J44.9 Chronic obstructive pulmonary disease, unspecified; Z79.899 Other long term (current) drug therapy; Z82.49 Family history of ischemic heart disease and other diseases of the circulatory system
CPT/HCPCS: 36415; 74022; 80053; 81001; 83036; 83690; 84439; 84443; 85025; 96374; G8987-GO; G8988-GO; G8989-GO; J1170; J1650; J2060; J3246

== ENCOUNTER 2017-09-20 11:30 | Inpatient (IN) | payer MEDICARE ==
[2017-09-20 13:23] LABS: Hematocrit 35.8 % (35.5-45.6); Hemoglobin 11.5 gm/dl (11.8-15.2); Mean Corpuscular HGB Conc 32 % (32-34); Mean Corpuscular Hemoglobin 27 pg (28-32); Mean Corpuscular Volume 84 fl (84-94); Platelet Count 280 K/mm3 (140-440); Red Blood Count 4.27 M/mm3 (3.65-5.03); Red Cell Distribution Width 14.6 % (13.2-15.2); White Blood Count 11.6 K/mm3 (4.5-11.0)
[2017-09-20 13:34] LABS: INR 1.13 (0.87-1.13); Partial Thromboplastin Time 26.4 Sec. (24.2-36.6)
[2017-09-20 13:43] LABS: Alanine Aminotransferase 8 units/L (7-56); Albumin 3.3 g/dL (3.9-5); Albumin/Globulin Ratio 0.8 %; Alkaline Phosphatase 51 units/L (35-129); Anion Gap 16 mmol/L; BUN/Creatinine Ratio 39; Blood Urea Nitrogen 35 mg/dL (9-20); Calcium 9.3 mg/dL (8.4-10.2); Carbon Dioxide 33 mmol/L (22-30); Chloride 96.5 mmol/L (98-107); Glucose 85 mg/dL (75-100); Potassium 4.6 mmol/L (3.6-5.0); Sodium 141 mmol/L (137-145); Total Protein 7.6 g/dL (6.3-8.2)
[2017-09-20 13:48] LABS: Bilirubin,Direct < 0.2 mg/dL (0-0.2); Bilirubin,Indirect 0.1 mg/dL
[2017-09-20 14:22] LABS: Basophils % (Manual) 0 % (0.0-1.8); Blastocytes % (Manual) 0 %; Diff Status Complete; Eosinophils % (Manual) 0 % (0.0-4.3); RBC Morphology Normal
[2017-09-20] MEDS ORDERED: ATIVAN IV ONE ×3 (16:13→23:08)
[2017-09-20] MEDS ORDERED: LASIX IV ONE (16:13)
--- NOTE | 2017-09-20 16:21 | Emergency Department Report ---
ED Shortness of Breath HPI - General Chief Complaint: Dyspnea/Respdistress Stated Complaint: DIZZY,ANXIETY Time Seen by Provider: 09/20/17 16:07 Source: patient, family Mode of arrival: Wheelchair Limitations: Physical Limitation - History of Present Illness Complaint: shortness of breath, cough Known History Of: COPD, recurrent pnemonia - Related Data Home Medications Medication Instructions Recorded Confirmed Last Taken ALBUTEROL NEB's [Proventil 0.083% 2.5 mg IH QID 08/30/17 09/20/17 Unknown NEBS] Cyclobenzaprine [Flexeril 10 MG 10 mg FEEDTUBE TID PRN 08/30/17 09/20/17 Unknown TAB] Fenofibrate [Tricor] 145 mg FEEDTUBE QDAY 08/30/17 09/20/17 Unknown Lactulose [Cephulac] 30 ml FEEDTUBE DAILY PRN 08/30/17 09/20/17 Unknown Omeprazole 40 mg FEEDTUBE DAILY 08/30/17 09/20/17 Unknown Oxycodone HCl [oxyCODONE TAB] 10 mg PO Q6H PRN 08/30/17 09/20/17 Unknown Pregabalin [Lyrica] 75 mg FEEDTUBE BID 08/30/17 09/20/17 Unknown Tamsulosin [Flomax] 0.4 mg FEEDTUBE QDAY 08/30/17 09/20/17 Unknown Temazepam 30 mg FEEDTUBE HS 08/30/17 09/20/17 Unknown risperiDONE [RisperDAL] 1 mg FEEDTUBE HS 08/30/17 09/20/17 Unknown Previous Rx's Medication Instructions Recorded Last Taken Type LORazepam [Ativan] 1 mg FEEDTUBE TID PRN #14 tablet 09/02/17 Unknown Rx oxyCODONE [Roxicodone TAB] 10 mg PO Q6H PRN #10 tablet 09/02/17 Unknown Rx Allergies Allergy/AdvReac Type Severity Reaction Status Date / Time guaifenesin [From Mucinex] AdvReac Intermediate Shortness Verified 08/30/17 10: 52 of Breath ED Review of Systems ROS: Stated complaint: DIZZY,ANXIETY Other details as noted in HPI Comment: All other systems reviewed and negative Constitutional: denies: chills, fever Respiratory: cough, shortness of breath, SOB with exertion Cardiovascular: dyspnea on exertion, orthopnea, paroxysmal nocturnal dyspnea. denies: chest pain, palpitations, edema Gastrointestinal: denies: abdominal pain, nausea, vomiting Genitourinary: denies: urgency, frequency Neurological: denies: headache, weakness ED Past Medical Hx - Past Medical History Previous Medical History?: Yes Hx Hypertension: No Hx Arthritis: Yes Hx Psychiatric Treatment: Yes (Anxiety) Hx COPD: Yes Hx HIV: No Additional medical history: Chronic neck and back pain from fracture - Surgical History Past Surgical History?: Yes Additional Surgical History: Neck and back surgery - Social History Smoking Status: Current Some Day Smoker Substance Use Type: None - Medications Home Medications: Home Medications Medication Instructions Recorded Confirmed Last Taken Type ALBUTEROL NEB's [Proventil 0.083% 2.5 mg IH QID 08/30/17 09/20/17 Unknown History NEBS] Cyclobenzaprine [Flexeril 10 MG 10 mg FEEDTUBE TID PRN 08/30/17 09/20/17 Unknown History TAB] Fenofibrate [Tricor] 145 mg FEEDTUBE QDAY 08/30/17 09/20/17 Unknown History Lactulose [Cephulac] 30 ml FEEDTUBE DAILY PRN 08/30/17 09/20/17 Unknown History Omeprazole 40 mg FEEDTUBE DAILY 08/30/17 09/20/17 Unknown History Oxycodone HCl [oxyCODONE TAB] 10 mg PO Q6H PRN 08/30/17 09/20/17 Unknown History Pregabalin [Lyrica] 75 mg FEEDTUBE BID 08/30/17 09/20/17 Unknown History Tamsulosin [Flomax] 0.4 mg FEEDTUBE QDAY 08/30/17 09/20/17 Unknown History Temazepam 30 mg FEEDTUBE HS 08/30/17 09/20/17 Unknown History risperiDONE [RisperDAL] 1 mg FEEDTUBE HS 08/30/17 09/20/17 Unknown History LORazepam [Ativan] 1 mg FEEDTUBE TID PRN #14 tablet 09/02/17 09/20/17 Unknown Rx oxyCODONE [Roxicodone TAB] 10 mg PO Q6H PRN #10 tablet 09/02/17 09/20/17 Unknown Rx ED Physical Exam - General Limitations: Physical Limitation General appearance: alert, in distress (moderate) - Head Head exam: Present: atraumatic, normocephalic - Eye Eye exam: Present: normal appearance - ENT ENT exam: Present: normal exam - Neck Neck exam: Present: normal inspection. Absent: tenderness, meningismus, full ROM - Respiratory Respiratory exam: Present: rhonchi, decreased breath sounds, prolonged expiratory. Absent: wheezes, rales - Cardiovascular Cardiovascular Exam: Present: regular rate, normal rhythm, normal heart sounds - GI/Abdominal GI/Abdominal exam: Present: soft, normal bowel sounds. Absent: distended, tenderness, guarding, rebound, rigid - Extremities Exam Extremities exam: Present: normal inspection. Absent: full ROM, tenderness - Back Exam Back exam: Absent: CVA tenderness (R), CVA tenderness (L) - Neurological Exam Neurological exam: Present: alert, oriented X3, CN II-XII intact - Skin Skin exam: Present: warm, intact ED Course Vital Signs 09/20/17 09/20/17 09/20/17 12:13 15:01 17:27 Temperature 98.2 F Pulse Rate 78 69 Pulse Rate [ 75 Bilateral Throughout] Respiratory 24 16 Rate Respiratory 18 Rate [Bilateral Throughout] Blood Pressure 113/64 Blood Pressure 107/74 [Left] O2 Sat by Pulse 99 97 Oximetry 09/20/17 09/20/17 09/20/17 17:44 18:31 22:21 Temperature 97.6 F Pulse Rate 70 67 Pulse Rate [ 78 Bilateral Throughout] Respiratory 16 14 Rate Respiratory 18 Rate [Bilateral Throughout] Blood Pressure Blood Pressure 104/68 107/59 [Left] O2 Sat by Pulse 97 99 Oximetry 09/20/17 23:12 Temperature Pulse Rate Pulse Rate [ Bilateral Throughout] Respiratory 14 Rate Respiratory Rate [Bilateral Throughout] Blood Pressure Blood Pressure [Left] O2 Sat by Pulse Oximetry - Reevaluation(s) Reevaluation #1: 09/21/17 00:[address] FUNK FOR ADMISSION. ED Medical Decision Making - Lab Data Result diagrams: 09/20/17 12:58 09/20/17 12:58 - EKG Data -: EKG Interpreted by Me - EKG Data Interpretation: no acute changes - Radiology Data Radiology results: image reviewed interpreted by me: CXR WITH NO ACUTE ABNORMALITIES. Critical care attestation.: If time is entered above; I have spent that time in minutes in the direct care of this critically ill patient, excluding procedure time. ED Disposition Clinical Impression: Congestive heart failure, COPD exacerbation Disposition: OP ADMIT IP TO THIS HOSP Is pt being admited?: Yes Condition: Stable
[2017-09-20] MEDS ORDERED: ATROVENT IH ONE (16:56)
[2017-09-20] MEDS ORDERED: XOPENEX IH ONE (16:56)
[2017-09-20] MEDS ORDERED: MORPHINE IV ONE ×2 (17:16→23:03)
[2017-09-20] MEDS ORDERED: ZOFRAN IV ONE (17:17)
--- NOTE | 2017-09-20 19:50 | History and Physical Report ---
Medications and Allergies Allergies Allergy/AdvReac Type Severity Reaction Status Date / Time guaifenesin [From Mucinex] AdvReac Intermediate Shortness Verified 08/30/17 10: 52 of Breath Home Medications Medication Instructions Recorded Confirmed Last Taken Type ALBUTEROL NEB's [Proventil 0.083% 2.5 mg IH QID 08/30/17 09/20/17 Unknown History NEBS] Cyclobenzaprine [Flexeril 10 MG 10 mg FEEDTUBE TID PRN 08/30/17 09/20/17 Unknown History TAB] Fenofibrate [Tricor] 145 mg FEEDTUBE QDAY 08/30/17 09/20/17 Unknown History Lactulose [Cephulac] 30 ml FEEDTUBE DAILY PRN 08/30/17 09/20/17 Unknown History Omeprazole 40 mg FEEDTUBE DAILY 08/30/17 09/20/17 Unknown History Oxycodone HCl [oxyCODONE TAB] 10 mg PO Q6H PRN 08/30/17 09/20/17 Unknown History Pregabalin [Lyrica] 75 mg FEEDTUBE BID 08/30/17 09/20/17 Unknown History Tamsulosin [Flomax] 0.4 mg FEEDTUBE QDAY 08/30/17 09/20/17 Unknown History Temazepam 30 mg FEEDTUBE HS 08/30/17 09/20/17 Unknown History risperiDONE [RisperDAL] 1 mg FEEDTUBE HS 08/30/17 09/20/17 Unknown History LORazepam [Ativan] 1 mg FEEDTUBE TID PRN #14 tablet 09/02/17 09/20/17 Unknown Rx oxyCODONE [Roxicodone TAB] 10 mg PO Q6H PRN #10 tablet 09/02/17 09/20/17 Unknown Rx Exam - Constitutional Vitals: Temp Pulse Resp BP Pulse Ox 98.2 F 70 16 104/68 97 09/20/17 12:13 09/20/17 18:31 09/20/17 18:31 09/20/17 18:31 09/20/17 18:31 Results - Labs CBC & Chem 7: 09/20/17 12:58 09/20/17 12:58 Labs: Abnormal lab results 09/20/17 09/20/17 09/20/17 Range/Units 12:58 12:58 12:58 WBC 11.6 H (4.5-11.0) K/mm3 Hgb 11.5 L (11.8-15.2) gm/dl MCH 27 L (28-32) pg Seg Neuts % (Manual) 95.0 H (40.0-70.0) % Lymphocytes % (Manual) 2.0 L (13.4-35.0) % Seg Neutrophils # Man 11.0 H (1.8-7.7) K/mm3 Lymphocytes # (Manual) 0.2 L (1.2-5.4) K/mm3 PT 15.1 H (12.2-14.9) Sec. Chloride 96.5 L (98-107) mmol/L Carbon Dioxide 33 H (22-30) mmol/L BUN 35 H (9-20) mg/dL NT-Pro-B Natriuret Pep 1773 H (0-900) pg/mL Albumin 3.3 L (3.9-5) g/dL
[2017-09-20] MEDS ORDERED: NON-FORMULARY (Oxycodone Hcl [Oxycodone Tab] 10 MG) PO PRN (22:48)
[2017-09-20] MEDS ORDERED: CEPHULAC FEEDTUBE PRN (22:48)
--- NOTE | 2017-09-20 22:48 | History and Physical Report ---
History of Present Illness Date of examination: 09/20/17 Date of admission: 09/20/17 Chief complaint: See in reports -Dictated H amd P History of present illness: See dictated H and p in reports Medications and Allergies Allergies Allergy/AdvReac Type Severity Reaction Status Date / Time guaifenesin [From Mucinex] AdvReac Intermediate Shortness Verified 08/30/17 10: 52 of Breath Home Medications Medication Instructions Recorded Confirmed Last Taken Type ALBUTEROL NEB's [Proventil 0.083% 2.5 mg IH QID 08/30/17 09/20/17 Unknown History NEBS] Cyclobenzaprine [Flexeril 10 MG 10 mg FEEDTUBE TID PRN 08/30/17 09/20/17 Unknown History TAB] Fenofibrate [Tricor] 145 mg FEEDTUBE QDAY 08/30/17 09/20/17 Unknown History Lactulose [Cephulac] 30 ml FEEDTUBE DAILY PRN 08/30/17 09/20/17 Unknown History Omeprazole 40 mg FEEDTUBE DAILY 08/30/17 09/20/17 Unknown History Oxycodone HCl [oxyCODONE TAB] 10 mg PO Q6H PRN 08/30/17 09/20/17 Unknown History Pregabalin [Lyrica] 75 mg FEEDTUBE BID 08/30/17 09/20/17 Unknown History Tamsulosin [Flomax] 0.4 mg FEEDTUBE QDAY 08/30/17 09/20/17 Unknown History Temazepam 30 mg FEEDTUBE HS 08/30/17 09/20/17 Unknown History risperiDONE [RisperDAL] 1 mg FEEDTUBE HS 08/30/17 09/20/17 Unknown History LORazepam [Ativan] 1 mg FEEDTUBE TID PRN #14 tablet 09/02/17 09/20/17 Unknown Rx oxyCODONE [Roxicodone TAB] 10 mg PO Q6H PRN #10 tablet 09/02/17 09/20/17 Unknown Rx Exam - Constitutional Vitals: Temp Pulse Resp BP Pulse Ox 97.6 F 67 14 107/59 99 09/20/17 22:21 09/20/17 22:21 09/20/17 22:21 09/20/17 22:21 09/20/17 22:21 Results - Labs CBC & Chem 7: 09/24/17 05:49 09/24/17 05:49 Labs: Laboratory Last Values WBC 11.6 K/mm3 (4.5-11.0) H 09/20/17 12:58 RBC 4.27 M/mm3 (3.65-5.03) 09/20/17 12:58 Hgb 11.5 gm/dl (11.8-15.2) L 09/20/17 12:58 Hct 35.8 % (35.5-45.6) 09/20/17 12:58 MCV 84 fl (84-94) 09/20/17 12:58 MCH 27 pg (28-32) L 09/20/17 12:58 MCHC 32 % (32-34) 09/20/17 12:58 RDW 14.6 % (13.2-15.2) 09/20/17 12:58 Plt Count 280 K/mm3 (140-440) 09/20/17 12:58 Add Manual Diff Complete 09/20/17 12:58 Total Counted 100 09/20/17 12:58 Seg Neutrophils % Product Safety Professional 09/20/17 12:58 Seg Neuts % (Manual) 95.0 % (40.0-70.0) H 09/20/17 12:58 Band Neutrophils % 0 % 09/20/17 12:58 Lymphocytes % (Manual) 2.0 % (13.4-35.0) L 09/20/17 12:58 Reactive Lymphs % (Man) 0 % 09/20/17 12:58 Monocytes % (Manual) 3.0 % (0.0-7.3) 09/20/17 12:58 Eosinophils % (Manual) 0 % (0.0-4.3) 09/20/17 12:58 Basophils % (Manual) 0 % (0.0-1.8) 09/20/17 12:58 Metamyelocytes % 0 % 09/20/17 12:58 Myelocytes % 0 % 09/20/17 12:58 Promyelocytes % 0 % 09/20/17 12:58 Blast Cells % 0 % 09/20/17 12:58 Nucleated RBC % Not Reportable 09/20/17 12:58 Seg Neutrophils # Man 11.0 K/mm3 (1.8-7.7) H 09/20/17 12:58 Band Neutrophils # 0.0 K/mm3 09/20/17 12:58 Lymphocytes # (Manual) 0.2 K/mm3 (1.2-5.4) L 09/20/17 12:58 Abs React Lymphs (Man) 0.0 K/mm3 09/20/17 12:58 Monocytes # (Manual) 0.3 K/mm3 (0.0-0.8) 09/20/17 12:58 Eosinophils # (Manual) 0.0 K/mm3 (0.0-0.4) 09/20/17 12:58 Basophils # (Manual) 0.0 K/mm3 (0.0-0.1) 09/20/17 12:58 Metamyelocytes # 0.0 K/mm3 09/20/17 12:58 Myelocytes # 0.0 K/mm3 09/20/17 12:58 Promyelocytes # 0.0 K/mm3 09/20/17 12:58 Blast Cells # 0.0 K/mm3 09/20/17 12:58 WBC Morphology Not Reportable 09/20/17 12:58 Hypersegmented Neuts Not Reportable 09/20/17 12:58 Hyposegmented Neuts Not Reportable 09/20/17 12:58 Hypogranular Neuts Not Reportable 09/20/17 12:58 Smudge Cells Not Reportable 09/20/17 12:58 Toxic Granulation Not Reportable 09/20/17 12:58 Toxic Vacuolation Not Reportable 09/20/17 12:58 Dohle Bodies Not Reportable 09/20/17 12:58 Pelger-Huet Anomaly Not Reportable 09/20/17 12:58 Fiona Rods Not Reportable 09/20/17 12:58 Platelet Estimate Appears normal 09/20/17 12:58 Clumped Platelets Not Reportable 09/20/17 12:58 Plt Clumps, EDTA Not Reportable 09/20/17 12:58 Large Platelets Not Reportable 09/20/17 12:58 Giant Platelets Not Reportable 09/20/17 12:58 Platelet Satelliting Not Reportable 09/20/17 12:58 Plt Morphology Comment Not Reportable 09/20/17 12:58 RBC Morphology Normal 09/20/17 12:58 Dimorphic RBCs Not Reportable 09/20/17 12:58 Polychromasia Not Reportable 09/20/17 12:58 Hypochromasia Not Reportable 09/20/17 12:58 Poikilocytosis Not Reportable 09/20/17 12:58 Anisocytosis Not Reportable 09/20/17 12:58 Microcytosis Not Reportable 09/20/17 12:58 Macrocytosis Not Reportable 09/20/17 12:58 Spherocytes Not Reportable 09/20/17 12:58 Pappenheimer Bodies Not Reportable 09/20/17 12:58 Sickle Cells Not Reportable 09/20/17 12:58 Target Cells Not Reportable 09/20/17 12:58 Tear Drop Cells Not Reportable 09/20/17 12:58 Ovalocytes Not Reportable 09/20/17 12:58 Helmet Cells Not Reportable 09/20/17 12:58 [place] Bodies Not Reportable 09/20/17 12:58 [place] Rings Not Reportable 09/20/17 12:58 Chava Cells Not Reportable 09/20/17 12:58 Bite Cells Not Reportable 09/20/17 12:58 Crenated Cell Not Reportable 09/20/17 12:58 Elliptocytes Not Reportable 09/20/17 12:58 Acanthocytes (Spur) Not Reportable 09/20/17 12:58 Rouleaux Not Reportable 09/20/17 12:58 Hemoglobin C Crystals Not Reportable 09/20/17 12:58 Schistocytes Not Reportable 09/20/17 12:58 Malaria parasites Not Reportable 09/20/17 12:58 Jose Rafael Bodies Not Reportable 09/20/17 12:58 Hem Pathologist Commnt No 09/20/17 12:58 PT 15.1 Sec. (12.2-14.9) H 09/20/17 12:58 INR 1.13 (0.87-1.13) 09/20/17 12:58 APTT 26.4 Sec. (24.2-36.6) 09/20/17 12:58 D-Dimer 322.8 ng/mlDDU (0-234) H 09/20/17 12:58 Sodium 141 mmol/L (137-145) 09/20/17 12:58 Potassium 4.6 mmol/L (3.6-5.0) 09/20/17 12:58 Chloride 96.5 mmol/L (98-107) L 09/20/17 12:58 Carbon Dioxide 33 mmol/L (22-30) H 09/20/17 12:58 Anion Gap 16 mmol/L 09/20/17 12:58 BUN 35 mg/dL (9-20) H 09/20/17 12:58 Creatinine 0.9 mg/dL (0.8-1.5) 09/20/17 12:58 Estimated GFR > 60 ml/min 09/20/17 12:58 BUN/Creatinine Ratio 39 % 09/20/17 12:58 Glucose 85 mg/dL (75-100) 09/20/17 12:58 Calcium 9.3 mg/dL (8.4-10.2) 09/20/17 12:58 Total Bilirubin 0.30 mg/dL (0.1-1.2) 09/20/17 12:58 Direct Bilirubin < 0.2 mg/dL (0-0.2) 09/20/17 12:58 Indirect Bilirubin 0.1 mg/dL 09/20/17 12:58 AST 11 units/L (5-40) 09/20/17 12:58 ALT 8 units/L (7-56) 09/20/17 12:58 Alkaline Phosphatase 51 units/L (35-129) 09/20/17 12:58 Troponin T < 0.010 ng/mL (0.00-0.029) 09/20/17 18:29 NT-Pro-B Natriuret Pep 1773 pg/mL (0-900) H 09/20/17 12:58 Total Protein 7.6 g/dL (6.3-8.2) 09/20/17 12:58 Albumin 3.3 g/dL (3.9-5) L 09/20/17 12:58 Albumin/Globulin Ratio 0.8 % 09/20/17 12:58 Blood Type O POSITIVE 09/20/17 13:03 Antibody Screen Negative 09/20/17 13:03
[2017-09-20] MEDS ORDERED: TYLENOL PO PRN ×2 (22:54→23:23)
[2017-09-20] MEDS ORDERED: MILK OF MAGNESIA PO PRN ×2 (22:54→23:23)
[2017-09-20] MEDS ORDERED: DULCOLAX PR PRN ×2 (22:54→23:23)
[2017-09-20] MEDS ORDERED: ZOFRAN IV PRN (22:54)
[2017-09-20] MEDS ORDERED: MORPHINE IV PRN (22:55)
[2017-09-20] MEDS ORDERED: AMBIEN PO PRN (22:55)
[2017-09-20] MEDS ORDERED: D5NS 1,000 ML IV SCH (23:00)
[2017-09-20] MEDS ORDERED: ATIVAN ONE (23:52)
[2017-09-21] MEDS: LYRICA FEEDTUBE SCH ×3 (00:06→21:35)
[2017-09-21] MEDS: D5NS 1,000 ML IV SCH ×3 (01:42→23:38)
[2017-09-21] MEDS: AMBIEN PO PRN ×2 (01:43→22:40)
[2017-09-21] MEDS: ATIVAN FEEDTUBE PRN ×3 (01:46→20:28)
[2017-09-21] MEDS: DUONEB *Not for PRN Use IH SCH ×4 (02:37→19:54)
[2017-09-21] MEDS: ROXICODONE PO PRN ×3 (05:01→18:03)
[2017-09-21 05:58] LABS: Basophils % (Auto) 0.1 % (0.0-1.8); Eosinophils % (Auto) 0.1 % (0.0-4.3); Hematocrit 32.1 % (35.5-45.6); Hemoglobin 10.5 gm/dl (11.8-15.2); Mean Corpuscular HGB Conc 33 % (32-34); Mean Corpuscular Hemoglobin 28 pg (28-32); Mean Corpuscular Volume 84 fl (84-94); Platelet Count 218 K/mm3 (140-440); Red Blood Count 3.81 M/mm3 (3.65-5.03); Red Cell Distribution Width 14.6 % (13.2-15.2); White Blood Count 5.5 K/mm3 (4.5-11.0)
[2017-09-21 06:18] LABS: Alanine Aminotransferase 9 units/L (7-56); Albumin/Globulin Ratio 0.9 %; Alkaline Phosphatase 42 units/L (35-129); Anion Gap 13 mmol/L; BUN/Creatinine Ratio 33; Blood Urea Nitrogen 33 mg/dL (9-20); Calcium 8.9 mg/dL (8.4-10.2); Carbon Dioxide 34 mmol/L (22-30); Chloride 98.7 mmol/L (98-107); Glucose 87 mg/dL (75-100); Potassium 4.1 mmol/L (3.6-5.0); Sodium 142 mmol/L (137-145); Total Protein 6.5 g/dL (6.3-8.2)
[2017-09-21] MEDS: FLEXERIL FEEDTUBE PRN ×3 (07:45→23:12)
--- NOTE | 2017-09-21 08:21 | History and Physical Report ---
CHIEF COMPLAINT: 1. Increasing shortness of breath. 2. Anxiety. HISTORY OF PRESENT ILLNESS: A 62-year-old male with history of C-spine fracture a few months ago, unable to take care of himself for the last couple of months and gradual decline in his status along with poor p.o. intake and weight loss, comes in for declining ADLs. Family unable to take care of him. Family wants the patient to be admitted to shelter facility. The patient was admitted on the first week of August for the same problem, refused to go to shelter facility hence was discharged. The patient was treated for failure to thrive, chronic pain due to injury of C-spine fracture and generalized anxiety disorder. Now, the patient has increasing shortness of breath and wheezing and cough productive of mucoid sputum. No fever. No recent travel. Unable to take care of himself. PAST MEDICAL HISTORY: Significant for; 1. Generalized anxiety disorder. 2. 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 3. Failure to thrive. 4. Hyperlipidemia. 5. Gastroesophageal reflux disease. 6. Peripheral neuropathy. 7. BPH. 8. Complete immobility due to failure to eat. The patient is wheelchair bound and bedbound. PAST SURGICAL HISTORY: C-spine surgery and a PEG tube. PERSONAL HISTORY: One pack a day smoker. Does not smoke now. FAMILY HISTORY: Significant for hypertension. REVIEW OF SYSTEMS: GENERAL: General decreasing weight and severe anxiety. HEENT: Unremarkable. NECK: Supple, severe neck pain present. LUNGS: Bilateral wheezing present. CARDIOVASCULAR: No chest pain, no palpitations. GASTROINTESTINAL: No nausea, no vomiting, no diarrhea. GENITOURINARY: No dysuria, no flank pain. MUSCULOSKELETAL: Severely weak in both upper and lower extremities, more so on lower extremities and unable to walk, can move from his bed to the wheelchair. CENTRAL NERVOUS SYSTEM: Alert and oriented. No syncope, no seizures. PSYCHIATRIC: Very anxious and depressed. SKIN: No skin changes. PHYSICAL EXAMINATION: GENERAL: Elderly male, cooperative during examination, though he states he is very anxious and short of breath. VITAL SIGNS: Blood pressure is 104/68, temperature is 97.6, pulse is 70, respiratory rate is 16. HEENT: Unremarkable. Pupils are equal and reactive. NECK: Supple, no lymphadenopathy, no thyromegaly. LUNGS: Bilateral inspiratory and expiratory rhonchi present. CARDIOVASCULAR: S1, S2 heard. No gallop, no murmur, no rub. Apical impulse in left fifth intercostal space and midclavicular line. ABDOMEN: Soft and benign. No hepatosplenomegaly. No guarding, no rigidity. Hernial orifices are normal. EXTREMITIES: Good pedal pulses. No pedal edema. Power is about 4/5 power secondary to debility. SKIN: Normal. LABORATORY DATA: Significant for white count 11,600, H and H are 11.5 and 35.8, platelet count of 280,000. Electrolytes: BUN and creatinine are 35 and 0.94. Sodium is 141, potassium is 4.6, albumin is 3.3 and low. TSH is normal at 1.57, free T4 is 1.38. IMAGING: Chest x-ray, no acute changes, no acute abdominal findings. Gastrostomy tube in place. EKG normal sinus rhythm. No acute ST-T wave changes. ASSESSMENT AND PLAN: 1. Chronic obstructive pulmonary disease exacerbation. The patient was started on DuoNebs and low dose IV Solu-Medrol and IV Levaquin. 2. Severe anxiety. The patient initiated back on Xanax. 3. Failure to thrive. The patient needs to be admitted to shelter facility. Case management requested for placement in shelter facility. The patient apparently has been accepted at [facility]. 4. Hyperlipidemia, continue fenofibrate and statins. 5. Gastroesophageal reflux disease. Continue proton pump inhibitor. 6. Peripheral neuropathy. Continue Lyrica. 7. Benign prostatic hypertrophy. Continue Flomax. 8. Complete immobility due to failure to eat, continue with physical therapy. 9. Deep venous thrombosis prophylaxis, Lovenox 40 mg subcutaneous daily. JOB# [id number] VSM/NTS
[2017-09-21] MEDS: MORPHINE IV PRN ×4 (08:33→21:30)
--- NOTE | 2017-09-21 09:38 | XRay Report ---
Single view chest: Compared to 05/31/16. History: Shortness of breath. Findings: Normal cardiomediastinal silhouette the trachea is midline. Emphysema with bilateral apical scarring. No consolidation. Impression: Emphysema. No acute lung changes.
[2017-09-21] MEDS ORDERED: NON-FORMULARY (Omeprazole [Omeprazole] 40 MG) FEEDTUBE SCH (10:00)
[2017-09-21] MEDS: TRICOR FEEDTUBE SCH (10:21)
[2017-09-21] MEDS: LEVAQUIN 750MG/150ML 750 MG/150 ML BAG IV SCH (10:21)
[2017-09-21] MEDS: PROTONIX FEEDTUBE SCH (10:21)
[2017-09-21] MEDS: FLOMAX PO SCH (10:22)
[2017-09-21] MEDS ORDERED: Fluarix Quad 2017-2018(36 MOS+ IM ONE (12:00)
[2017-09-21] MEDS ORDERED: PANCREAZE DR 10,500 UNIT FEEDTUBE PRN (12:23)
[2017-09-21] MEDS ORDERED: SODIUM BICARBONATE FEEDTUBE PRN (12:23)
[2017-09-21] MEDS ORDERED: SIMPLE SYRUP FEEDTUBE PRN ×2 (12:23)
--- NOTE | 2017-09-21 15:32 | Progress Note ---
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 CXR read as emphysema and no acute findings. -AECOPD: iv steroids, abx, nebs -FTT: consult infantry assaultman -Functional quadriplegia: physicial therapy -Anxiety, chronic and worsening: ativan -Tobacco dependency: advised stopping -dvt prophylaxis: sq heparin History Interval history: Patient was seen and examined. Follow-up on current diagnosis/FTT and sob. Overnight uneventful. Patient denies any chest pain, shortness breath, nausea/ vomiting or severe headaches. Imaging, nursing note, chart, labs and old chart reviewed. Discussed with patient. Hospitalist Physical - Physical exam Narrative exam: GEN: thin frail, NAD, AWAKE, ALERT, ORIENTATED x 3 HEENT: NCAT, EOMI, PERRL, OP Clear NECK: supple, no adenopathy, no thyromegaly, no JVD CVS/HEART: RRR, NORMAL S1S2, NO JVD, pulses present bilaterally CHEST/LUNGS: CTA B, Symmetrical chest expansion, good air entry bilaterally GI/Abdomen: soft, peg tube, NTND, good bowel sounds, no guarding or rebound /Bladder: no suprapubic tenderness, no CVA or paraspinal tenderness EXT/Skin: no c/c/e, no obvious rash MSK: lrom Neuro: CN 2-12 grossly intact, no new focal deficits Psych: calm - Constitutional Vitals: Temp Pulse Resp BP Pulse Ox 97.8 F 71 18 120/54 99 09/21/17 01:27 09/21/17 14:30 09/21/17 14:30 09/21/17 01:27 09/20/17 22:21 Results - Labs CBC & Chem 7: 09/21/17 05:34 09/21/17 05:34 Labs: Laboratory Last Values WBC 5.5 K/mm3 (4.5-11.0) 09/21/17 05:34 RBC 3.81 M/mm3 (3.65-5.03) 09/21/17 05:34 Hgb 10.5 gm/dl (11.8-15.2) L 09/21/17 05:34 Hct 32.1 % (35.5-45.6) L 09/21/17 05:34 MCV 84 fl (84-94) 09/21/17 05:34 MCH 28 pg (28-32) 09/21/17 05:34 MCHC 33 % (32-34) 09/21/17 05:34 RDW 14.6 % (13.2-15.2) 09/21/17 05:34 Plt Count 218 K/mm3 (140-440) 09/21/17 05:34 Lymph % (Auto) 20.3 % (13.4-35.0) 09/21/17 05:34 [place] % (Auto) 8.7 % (0.0-7.3) H 09/21/17 05:34 Eos % (Auto) 0.1 % (0.0-4.3) 09/21/17 05:34 Baso % (Auto) 0.1 % (0.0-1.8) 09/21/17 05:34 Lymph # 1.1 K/mm3 (1.2-5.4) L 09/21/17 05:34 [place] # 0.5 K/mm3 (0.0-0.8) 09/21/17 05:34 Eos # 0.0 K/mm3 (0.0-0.4) 09/21/17 05:34 Baso # 0.0 K/mm3 (0.0-0.1) 09/21/17 05:34 Add Manual Diff Complete 09/20/17 12:58 Total Counted 100 09/20/17 12:58 Seg Neutrophils % 70.8 % (40.0-70.0) H 09/21/17 05:34 Seg Neuts % (Manual) 95.0 % (40.0-70.0) H 09/20/17 12:58 Band Neutrophils % 0 % 09/20/17 12:58 Lymphocytes % (Manual) 2.0 % (13.4-35.0) L 09/20/17 12:58 Reactive Lymphs % (Man) 0 % 09/20/17 12:58 Monocytes % (Manual) 3.0 % (0.0-7.3) 09/20/17 12:58 Eosinophils % (Manual) 0 % (0.0-4.3) 09/20/17 12:58 Basophils % (Manual) 0 % (0.0-1.8) 09/20/17 12:58 Metamyelocytes % 0 % 09/20/17 12:58 Myelocytes % 0 % 09/20/17 12:58 Promyelocytes % 0 % 09/20/17 12:58 Blast Cells % 0 % 09/20/17 12:58 Nucleated RBC % Not Reportable 09/20/17 12:58 Seg Neutrophils # 3.9 K/mm3 (1.8-7.7) 09/21/17 05:34 Seg Neutrophils # Man 11.0 K/mm3 (1.8-7.7) H 09/20/17 12:58 Band Neutrophils # 0.0 K/mm3 09/20/17 12:58 Lymphocytes # (Manual) 0.2 K/mm3 (1.2-5.4) L 09/20/17 12:58 Abs React Lymphs (Man) 0.0 K/mm3 09/20/17 12:58 Monocytes # (Manual) 0.3 K/mm3 (0.0-0.8) 09/20/17 12:58 Eosinophils # (Manual) 0.0 K/mm3 (0.0-0.4) 09/20/17 12:58 Basophils # (Manual) 0.0 K/mm3 (0.0-0.1) 09/20/17 12:58 Metamyelocytes # 0.0 K/mm3 09/20/17 12:58 Myelocytes # 0.0 K/mm3 09/20/17 12:58 Promyelocytes # 0.0 K/mm3 09/20/17 12:58 Blast Cells # 0.0 K/mm3 09/20/17 12:58 WBC Morphology Not Reportable 09/20/17 12:58 Hypersegmented Neuts Not Reportable 09/20/17 12:58 Hyposegmented Neuts Not Reportable 09/20/17 12:58 Hypogranular Neuts Not Reportable 09/20/17 12:58 Smudge Cells Not Reportable 09/20/17 12:58 Toxic Granulation Not Reportable 09/20/17 12:58 Toxic Vacuolation Not Reportable 09/20/17 12:58 Dohle Bodies Not Reportable 09/20/17 12:58 Pelger-Huet Anomaly Not Reportable 09/20/17 12:58 Fiona Rods Not Reportable 09/20/17 12:58 Platelet Estimate Appears normal 09/20/17 12:58 Clumped Platelets Not Reportable 09/20/17 12:58 Plt Clumps, EDTA Not Reportable 09/20/17 12:58 Large Platelets Not Reportable 09/20/17 12:58 Giant Platelets Not Reportable 09/20/17 12:58 Platelet Satelliting Not Reportable 09/20/17 12:58 Plt Morphology Comment Not Reportable 09/20/17 12:58 RBC Morphology Normal 09/20/17 12:58 Dimorphic RBCs Not Reportable 09/20/17 12:58 Polychromasia Not Reportable 09/20/17 12:58 Hypochromasia Not Reportable 09/20/17 12:58 Poikilocytosis Not Reportable 09/20/17 12:58 Anisocytosis Not Reportable 09/20/17 12:58 Microcytosis Not Reportable 09/20/17 12:58 Macrocytosis Not Reportable 09/20/17 12:58 Spherocytes Not Reportable 09/20/17 12:58 Pappenheimer Bodies Not Reportable 09/20/17 12:58 Sickle Cells Not Reportable 09/20/17 12:58 Target Cells Not Reportable 09/20/17 12:58 Tear Drop Cells Not Reportable 09/20/17 12:58 Ovalocytes Not Reportable 09/20/17 12:58 Helmet Cells Not Reportable 09/20/17 12:58 [place] Bodies Not Reportable 09/20/17 12:58 [place] Rings Not Reportable 09/20/17 12:58 Chava Cells Not Reportable 09/20/17 12:58 Bite Cells Not Reportable 09/20/17 12:58 Crenated Cell Not Reportable 09/20/17 12:58 Elliptocytes Not Reportable 09/20/17 12:58 Acanthocytes (Spur) Not Reportable 09/20/17 12:58 Rouleaux Not Reportable 09/20/17 12:58 Hemoglobin C Crystals Not Reportable 09/20/17 12:58 Schistocytes Not Reportable 09/20/17 12:58 Malaria parasites Not Reportable 09/20/17 12:58 Jose Rafael Bodies Not Reportable 09/20/17 12:58 Hem Pathologist Commnt No 09/20/17 12:58 PT 15.1 Sec. (12.2-14.9) H 09/20/17 12:58 INR 1.13 (0.87-1.13) 09/20/17 12:58 APTT 26.4 Sec. (24.2-36.6) 09/20/17 12:58 D-Dimer 322.8 ng/mlDDU (0-234) H 09/20/17 12:58 Sodium 142 mmol/L (137-145) 09/21/17 05:34 Potassium 4.1 mmol/L (3.6-5.0) 09/21/17 05:34 Chloride 98.7 mmol/L (98-107) 09/21/17 05:34 Carbon Dioxide 34 mmol/L (22-30) H 09/21/17 05:34 Anion Gap 13 mmol/L 09/21/17 05:34 BUN 33 mg/dL (9-20) H 09/21/17 05:34 Creatinine 1.0 mg/dL (0.8-1.5) 09/21/17 05:34 Estimated GFR > 60 ml/min 09/21/17 05:34 BUN/Creatinine Ratio 33 % 09/21/17 05:34 Glucose 87 mg/dL (75-100) 09/21/17 05:34 Calcium 8.9 mg/dL (8.4-10.2) 09/21/17 05:34 Total Bilirubin 0.30 mg/dL (0.1-1.2) 09/21/17 05:34 Direct Bilirubin < 0.2 mg/dL (0-0.2) 09/20/17 12:58 Indirect Bilirubin 0.1 mg/dL 09/20/17 12:58 AST 18 units/L (5-40) 09/21/17 05:34 ALT 9 units/L (7-56) 09/21/17 05:34 Alkaline Phosphatase 42 units/L (35-129) 09/21/17 05:34 Troponin T < 0.010 ng/mL (0.00-0.029) 09/20/17 18:29 NT-Pro-B Natriuret Pep 1773 pg/mL (0-900) H 09/20/17 12:58 Total Protein 6.5 g/dL (6.3-8.2) 09/21/17 05:34 Albumin 3.0 g/dL (3.9-5) L 09/21/17 05:34 Albumin/Globulin Ratio 0.9 % 09/21/17 05:34 Blood Type O POSITIVE 09/20/17 13:03 Antibody Screen Negative 09/20/17 13:03
[2017-09-21] MEDS: RisperDAL FEEDTUBE SCH (21:35)
[2017-09-21] MEDS ORDERED: RESTORIL FEEDTUBE SCH (22:00)
[2017-09-21] MEDS ORDERED: NON-FORMULARY (Temazepam [Temazepam] 30 MG) FEEDTUBE SCH (22:00)
[2017-09-21] MEDS: ZOFRAN IV PRN (23:06)
[2017-09-22] MEDS: ROXICODONE PO PRN ×4 (00:18→18:21)
[2017-09-22] MEDS ORDERED: ATIVAN IV ONE (01:18)
[2017-09-22] MEDS: MORPHINE IV PRN ×5 (04:12→21:31)
[2017-09-22] MEDS: HEPARIN SUB-Q SCH ×2 (06:08→18:22)
[2017-09-22 08:15] LABS: Hematocrit 35.5 % (35.5-45.6); Hemoglobin 11.3 gm/dl (11.8-15.2); Mean Corpuscular HGB Conc 32 % (32-34); Mean Corpuscular Hemoglobin 27 pg (28-32); Mean Corpuscular Volume 86 fl (84-94); Platelet Count 250 K/mm3 (140-440); Red Blood Count 4.14 M/mm3 (3.65-5.03); Red Cell Distribution Width 14.9 % (13.2-15.2); White Blood Count 11.3 K/mm3 (4.5-11.0)
[2017-09-22 08:19] LABS: Anion Gap 12 mmol/L; BUN/Creatinine Ratio 33; Blood Urea Nitrogen 26 mg/dL (9-20); Calcium 8.9 mg/dL (8.4-10.2); Carbon Dioxide 35 mmol/L (22-30); Chloride 100.8 mmol/L (98-107); Glucose 175 mg/dL (75-100); Potassium 4.5 mmol/L (3.6-5.0); Sodium 143 mmol/L (137-145)
[2017-09-22] MEDS: LEVAQUIN 750MG/150ML 750 MG/150 ML BAG IV SCH (09:01)
[2017-09-22] MEDS: PROTONIX FEEDTUBE SCH (09:01)
[2017-09-22] MEDS: TRICOR FEEDTUBE SCH (09:02)
[2017-09-22] MEDS: LYRICA FEEDTUBE SCH ×2 (09:02→21:26)
[2017-09-22] MEDS: ATIVAN FEEDTUBE PRN ×3 (09:02→21:26)
[2017-09-22] MEDS: FLOMAX PO SCH (09:02)
[2017-09-22] MEDS: DUONEB *Not for PRN Use IH SCH ×3 (11:32→21:10)
--- NOTE | 2017-09-22 12:11 | Progress Note ---
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 CXR read as emphysema and no acute findings. -AECOPD: iv steroids, abx, nebs -FTT: consult buttoner -Functional quadriplegia: physicial therapy -Anxiety, chronic and worsening: ativan -Tobacco dependency: advised stopping -moderate malnutrition, poa: buttoner consulted -dvt prophylaxis: sq heparin He wants more anxiety medications and pain medications. Await placement History Interval history: Patient was seen and examined. Follow-up on current diagnosis/FTT and sob. Overnight uneventful. Patient denies any chest pain, shortness breath, nausea/ vomiting or severe headaches. Imaging, nursing note, chart, labs and old chart reviewed. Discussed with patient. Hospitalist Physical - Physical exam Narrative exam: GEN: thin frail, NAD, AWAKE, ALERT, ORIENTATED x 3 HEENT: NCAT, EOMI, PERRL, OP Clear, old trach site NECK: supple, no adenopathy, no thyromegaly, no JVD CVS/HEART: RRR, NORMAL S1S2, NO JVD, pulses present bilaterally CHEST/LUNGS: CTA B, Symmetrical chest expansion, good air entry bilaterally GI/Abdomen: soft, peg tube, NTND, good bowel sounds, no guarding or rebound /Bladder: no suprapubic tenderness, no CVA or paraspinal tenderness EXT/Skin: no c/c/e, no obvious rash MSK: lrom x 4 ext Neuro: CN 2-12 grossly intact, no new focal deficits Psych: calm - Constitutional Vitals: Temp Pulse Resp BP Pulse Ox 97.6 F 65 17 110/51 100 09/21/17 23:13 09/22/17 11:42 09/22/17 11:42 09/21/17 23:13 09/21/17 23:13 Results - Labs CBC & Chem 7: 09/22/17 07:05 09/22/17 07:05 Labs: Laboratory Last Values WBC 11.3 K/mm3 (4.5-11.0) H 09/22/17 07:05 RBC 4.14 M/mm3 (3.65-5.03) 09/22/17 07:05 Hgb 11.3 gm/dl (11.8-15.2) L 09/22/17 07:05 Hct 35.5 % (35.5-45.6) 09/22/17 07:05 MCV 86 fl (84-94) 09/22/17 07:05 MCH 27 pg (28-32) L 09/22/17 07:05 MCHC 32 % (32-34) 09/22/17 07:05 RDW 14.9 % (13.2-15.2) 09/22/17 07:05 Plt Count 250 K/mm3 (140-440) 09/22/17 07:05 Lymph % (Auto) 20.3 % (13.4-35.0) 09/21/17 05:34 [place] % (Auto) 8.7 % (0.0-7.3) H 09/21/17 05:34 Eos % (Auto) 0.1 % (0.0-4.3) 09/21/17 05:34 Baso % (Auto) 0.1 % (0.0-1.8) 09/21/17 05:34 Lymph # 1.1 K/mm3 (1.2-5.4) L 09/21/17 05:34 [place] # 0.5 K/mm3 (0.0-0.8) 09/21/17 05:34 Eos # 0.0 K/mm3 (0.0-0.4) 09/21/17 05:34 Baso # 0.0 K/mm3 (0.0-0.1) 09/21/17 05:34 Add Manual Diff Complete 09/20/17 12:58 Total Counted 100 09/20/17 12:58 Seg Neutrophils % 70.8 % (40.0-70.0) H 09/21/17 05:34 Seg Neuts % (Manual) 95.0 % (40.0-70.0) H 09/20/17 12:58 Band Neutrophils % 0 % 09/20/17 12:58 Lymphocytes % (Manual) 2.0 % (13.4-35.0) L 09/20/17 12:58 Reactive Lymphs % (Man) 0 % 09/20/17 12:58 Monocytes % (Manual) 3.0 % (0.0-7.3) 09/20/17 12:58 Eosinophils % (Manual) 0 % (0.0-4.3) 09/20/17 12:58 Basophils % (Manual) 0 % (0.0-1.8) 09/20/17 12:58 Metamyelocytes % 0 % 09/20/17 12:58 Myelocytes % 0 % 09/20/17 12:58 Promyelocytes % 0 % 09/20/17 12:58 Blast Cells % 0 % 09/20/17 12:58 Nucleated RBC % Not Reportable 09/20/17 12:58 Seg Neutrophils # 3.9 K/mm3 (1.8-7.7) 09/21/17 05:34 Seg Neutrophils # Man 11.0 K/mm3 (1.8-7.7) H 09/20/17 12:58 Band Neutrophils # 0.0 K/mm3 09/20/17 12:58 Lymphocytes # (Manual) 0.2 K/mm3 (1.2-5.4) L 09/20/17 12:58 Abs React Lymphs (Man) 0.0 K/mm3 09/20/17 12:58 Monocytes # (Manual) 0.3 K/mm3 (0.0-0.8) 09/20/17 12:58 Eosinophils # (Manual) 0.0 K/mm3 (0.0-0.4) 09/20/17 12:58 Basophils # (Manual) 0.0 K/mm3 (0.0-0.1) 09/20/17 12:58 Metamyelocytes # 0.0 K/mm3 09/20/17 12:58 Myelocytes # 0.0 K/mm3 09/20/17 12:58 Promyelocytes # 0.0 K/mm3 09/20/17 12:58 Blast Cells # 0.0 K/mm3 09/20/17 12:58 WBC Morphology Not Reportable 09/20/17 12:58 Hypersegmented Neuts Not Reportable 09/20/17 12:58 Hyposegmented Neuts Not Reportable 09/20/17 12:58 Hypogranular Neuts Not Reportable 09/20/17 12:58 Smudge Cells Not Reportable 09/20/17 12:58 Toxic Granulation Not Reportable 09/20/17 12:58 Toxic Vacuolation Not Reportable 09/20/17 12:58 Dohle Bodies Not Reportable 09/20/17 12:58 Pelger-Huet Anomaly Not Reportable 09/20/17 12:58 Fiona Rods Not Reportable 09/20/17 12:58 Platelet Estimate Appears normal 09/20/17 12:58 Clumped Platelets Not Reportable 09/20/17 12:58 Plt Clumps, EDTA Not Reportable 09/20/17 12:58 Large Platelets Not Reportable 09/20/17 12:58 Giant Platelets Not Reportable 09/20/17 12:58 Platelet Satelliting Not Reportable 09/20/17 12:58 Plt Morphology Comment Not Reportable 09/20/17 12:58 RBC Morphology Normal 09/20/17 12:58 Dimorphic RBCs Not Reportable 09/20/17 12:58 Polychromasia Not Reportable 09/20/17 12:58 Hypochromasia Not Reportable 09/20/17 12:58 Poikilocytosis Not Reportable 09/20/17 12:58 Anisocytosis Not Reportable 09/20/17 12:58 Microcytosis Not Reportable 09/20/17 12:58 Macrocytosis Not Reportable 09/20/17 12:58 Spherocytes Not Reportable 09/20/17 12:58 Pappenheimer Bodies Not Reportable 09/20/17 12:58 Sickle Cells Not Reportable 09/20/17 12:58 Target Cells Not Reportable 09/20/17 12:58 Tear Drop Cells Not Reportable 09/20/17 12:58 Ovalocytes Not Reportable 09/20/17 12:58 Helmet Cells Not Reportable 09/20/17 12:58 [place] Bodies Not Reportable 09/20/17 12:58 [place] Rings Not Reportable 09/20/17 12:58 Chava Cells Not Reportable 09/20/17 12:58 Bite Cells Not Reportable 09/20/17 12:58 Crenated Cell Not Reportable 09/20/17 12:58 Elliptocytes Not Reportable 09/20/17 12:58 Acanthocytes (Spur) Not Reportable 09/20/17 12:58 Rouleaux Not Reportable 09/20/17 12:58 Hemoglobin C Crystals Not Reportable 09/20/17 12:58 Schistocytes Not Reportable 09/20/17 12:58 Malaria parasites Not Reportable 09/20/17 12:58 Jose Rafael Bodies Not Reportable 09/20/17 12:58 Hem Pathologist Commnt No 09/20/17 12:58 PT 15.1 Sec. (12.2-14.9) H 09/20/17 12:58 INR 1.13 (0.87-1.13) 09/20/17 12:58 APTT 26.4 Sec. (24.2-36.6) 09/20/17 12:58 D-Dimer 322.8 ng/mlDDU (0-234) H 09/20/17 12:58 Sodium 143 mmol/L (137-145) 09/22/17 07:05 Potassium 4.5 mmol/L (3.6-5.0) 09/22/17 07:05 Chloride 100.8 mmol/L (98-107) 09/22/17 07:05 Carbon Dioxide 35 mmol/L (22-30) H 09/22/17 07:05 Anion Gap 12 mmol/L 09/22/17 07:05 BUN 26 mg/dL (9-20) H 09/22/17 07:05 Creatinine 0.8 mg/dL (0.8-1.5) 09/22/17 07:05 Estimated GFR > 60 ml/min 09/22/17 07:05 BUN/Creatinine Ratio 33 % 09/22/17 07:05 Glucose 175 mg/dL (75-100) H 09/22/17 07:05 POC Glucose 180 (70-105) H 09/22/17 08:56 Calcium 8.9 mg/dL (8.4-10.2) 09/22/17 07:05 Total Bilirubin 0.30 mg/dL (0.1-1.2) 09/21/17 05:34 Direct Bilirubin < 0.2 mg/dL (0-0.2) 09/20/17 12:58 Indirect Bilirubin 0.1 mg/dL 09/20/17 12:58 AST 18 units/L (5-40) 09/21/17 05:34 ALT 9 units/L (7-56) 09/21/17 05:34 Alkaline Phosphatase 42 units/L (35-129) 09/21/17 05:34 Troponin T < 0.010 ng/mL (0.00-0.029) 09/20/17 18:29 NT-Pro-B Natriuret Pep 1773 pg/mL (0-900) H 09/20/17 12:58 Total Protein 6.5 g/dL (6.3-8.2) 09/21/17 05:34 Albumin 3.0 g/dL (3.9-5) L 09/21/17 05:34 Albumin/Globulin Ratio 0.9 % 09/21/17 05:34 Blood Type O POSITIVE 09/20/17 13:03 Antibody Screen Negative 09/20/17 13:03
[2017-09-22] MEDS: ZOFRAN IV PRN (14:37)
[2017-09-22] MEDS: FLEXERIL FEEDTUBE PRN (18:21)
[2017-09-22] MEDS: RisperDAL FEEDTUBE SCH (21:26)
[2017-09-22] MEDS: AMBIEN PO PRN (23:50)
[2017-09-23] MEDS: ROXICODONE PO PRN ×3 (02:47→22:28)
[2017-09-23] MEDS: FLEXERIL FEEDTUBE PRN ×3 (02:47→20:55)
[2017-09-23] MEDS: ATIVAN FEEDTUBE PRN ×3 (05:51→17:08)
[2017-09-23] MEDS: HEPARIN SUB-Q SCH ×2 (05:52→17:32)
[2017-09-23 08:12] LABS: Hematocrit 35.4 % (35.5-45.6); Hemoglobin 11.4 gm/dl (11.8-15.2); Mean Corpuscular HGB Conc 32 % (32-34); Mean Corpuscular Hemoglobin 28 pg (28-32); Mean Corpuscular Volume 85 fl (84-94); Platelet Count 228 K/mm3 (140-440); Red Blood Count 4.15 M/mm3 (3.65-5.03); Red Cell Distribution Width 15.1 % (13.2-15.2)
[2017-09-23 08:24] LABS: Anion Gap 11 mmol/L; BUN/Creatinine Ratio 37; Blood Urea Nitrogen 26 mg/dL (9-20); Calcium 8.9 mg/dL (8.4-10.2); Carbon Dioxide 33 mmol/L (22-30); Chloride 101.2 mmol/L (98-107); Glucose 110 mg/dL (75-100); Potassium 4.5 mmol/L (3.6-5.0); Sodium 141 mmol/L (137-145)
[2017-09-23] MEDS: MORPHINE IV PRN ×2 (09:19→17:32)
[2017-09-23] MEDS: FLOMAX PO SCH (09:27)
[2017-09-23] MEDS: LYRICA FEEDTUBE SCH ×2 (09:27→22:29)
[2017-09-23] MEDS: PROTONIX FEEDTUBE SCH (09:27)
[2017-09-23] MEDS: TRICOR FEEDTUBE SCH (09:27)
[2017-09-23] MEDS: DUONEB *Not for PRN Use IH SCH ×3 (09:36→21:03)
[2017-09-23] MEDS: LEVAQUIN 750MG/150ML 750 MG/150 ML BAG IV SCH (09:42)
--- NOTE | 2017-09-23 10:20 | Progress Note ---
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 CXR read as emphysema and no acute findings. -AECOPD: iv steroids, abx, nebs -FTT: consult bag hanger -Functional quadriplegia: physicial therapy -Anxiety, chronic and worsening: ativan -Tobacco dependency: advised stopping -moderate malnutrition, poa: bag hanger consulted -dvt prophylaxis: sq heparin He wants more anxiety medications and pain medications. Await placement Since patient will be here for placement I Consulted GI for regular gtube change or they may do it outpatient. d/w sister yesterday increase ativan to qid instead of tid History Interval history: Patient was seen and examined. Follow-up on current diagnosis/FTT and sob. Overnight uneventful. Patient denies any chest pain, shortness breath, nausea/ vomiting or severe headaches. Imaging, nursing note, chart, labs and old chart reviewed. Discussed with patient. His main compliant is wanting more anxiety medications. Hospitalist Physical - Physical exam Narrative exam: GEN: thin frail, NAD, AWAKE, ALERT, ORIENTATED x 3 HEENT: NCAT, EOMI, PERRL, OP Clear, old trach site NECK: supple, no adenopathy, no thyromegaly, no JVD CVS/HEART: RRR, NORMAL S1S2, NO JVD, pulses present bilaterally CHEST/LUNGS: CTA B, Symmetrical chest expansion, good air entry bilaterally GI/Abdomen: soft, peg tube, NTND, good bowel sounds, no guarding or rebound /Bladder: no suprapubic tenderness, no CVA or paraspinal tenderness EXT/Skin: no c/c/e, no obvious rash MSK: lrom x 4 ext Neuro: CN 2-12 grossly intact, no new focal deficits Psych: anxious - Constitutional Vitals: Temp Pulse Resp BP Pulse Ox 97.8 F 86 18 139/65 95 09/23/17 08:47 09/23/17 09:33 09/23/17 09:33 09/23/17 08:47 09/23/17 08:47 Results - Labs CBC & Chem 7: 09/23/17 07:31 09/23/17 07:31 Labs: Laboratory Last Values WBC 10.0 K/mm3 (4.5-11.0) 09/23/17 07:31 RBC 4.15 M/mm3 (3.65-5.03) 09/23/17 07:31 Hgb 11.4 gm/dl (11.8-15.2) L 09/23/17 07:31 Hct 35.4 % (35.5-45.6) L 09/23/17 07:31 MCV 85 fl (84-94) 09/23/17 07:31 MCH 28 pg (28-32) 09/23/17 07:31 MCHC 32 % (32-34) 09/23/17 07:31 RDW 15.1 % (13.2-15.2) 09/23/17 07:31 Plt Count 228 K/mm3 (140-440) 09/23/17 07:31 Lymph % (Auto) 20.3 % (13.4-35.0) 09/21/17 05:34 [place] % (Auto) 8.7 % (0.0-7.3) H 09/21/17 05:34 Eos % (Auto) 0.1 % (0.0-4.3) 09/21/17 05:34 Baso % (Auto) 0.1 % (0.0-1.8) 09/21/17 05:34 Lymph # 1.1 K/mm3 (1.2-5.4) L 09/21/17 05:34 [place] # 0.5 K/mm3 (0.0-0.8) 09/21/17 05:34 Eos # 0.0 K/mm3 (0.0-0.4) 09/21/17 05:34 Baso # 0.0 K/mm3 (0.0-0.1) 09/21/17 05:34 Add Manual Diff Complete 09/20/17 12:58 Total Counted 100 09/20/17 12:58 Seg Neutrophils % 70.8 % (40.0-70.0) H 09/21/17 05:34 Seg Neuts % (Manual) 95.0 % (40.0-70.0) H 09/20/17 12:58 Band Neutrophils % 0 % 09/20/17 12:58 Lymphocytes % (Manual) 2.0 % (13.4-35.0) L 09/20/17 12:58 Reactive Lymphs % (Man) 0 % 09/20/17 12:58 Monocytes % (Manual) 3.0 % (0.0-7.3) 09/20/17 12:58 Eosinophils % (Manual) 0 % (0.0-4.3) 09/20/17 12:58 Basophils % (Manual) 0 % (0.0-1.8) 09/20/17 12:58 Metamyelocytes % 0 % 09/20/17 12:58 Myelocytes % 0 % 09/20/17 12:58 Promyelocytes % 0 % 09/20/17 12:58 Blast Cells % 0 % 09/20/17 12:58 Nucleated RBC % Not Reportable 09/20/17 12:58 Seg Neutrophils # 3.9 K/mm3 (1.8-7.7) 09/21/17 05:34 Seg Neutrophils # Man 11.0 K/mm3 (1.8-7.7) H 09/20/17 12:58 Band Neutrophils # 0.0 K/mm3 09/20/17 12:58 Lymphocytes # (Manual) 0.2 K/mm3 (1.2-5.4) L 09/20/17 12:58 Abs React Lymphs (Man) 0.0 K/mm3 09/20/17 12:58 Monocytes # (Manual) 0.3 K/mm3 (0.0-0.8) 09/20/17 12:58 Eosinophils # (Manual) 0.0 K/mm3 (0.0-0.4) 09/20/17 12:58 Basophils # (Manual) 0.0 K/mm3 (0.0-0.1) 09/20/17 12:58 Metamyelocytes # 0.0 K/mm3 09/20/17 12:58 Myelocytes # 0.0 K/mm3 09/20/17 12:58 Promyelocytes # 0.0 K/mm3 09/20/17 12:58 Blast Cells # 0.0 K/mm3 09/20/17 12:58 WBC Morphology Not Reportable 09/20/17 12:58 Hypersegmented Neuts Not Reportable 09/20/17 12:58 Hyposegmented Neuts Not Reportable 09/20/17 12:58 Hypogranular Neuts Not Reportable 09/20/17 12:58 Smudge Cells Not Reportable 09/20/17 12:58 Toxic Granulation Not Reportable 09/20/17 12:58 Toxic Vacuolation Not Reportable 09/20/17 12:58 Dohle Bodies Not Reportable 09/20/17 12:58 Pelger-Huet Anomaly Not Reportable 09/20/17 12:58 Fiona Rods Not Reportable 09/20/17 12:58 Platelet Estimate Appears normal 09/20/17 12:58 Clumped Platelets Not Reportable 09/20/17 12:58 Plt Clumps, EDTA Not Reportable 09/20/17 12:58 Large Platelets Not Reportable 09/20/17 12:58 Giant Platelets Not Reportable 09/20/17 12:58 Platelet Satelliting Not Reportable 09/20/17 12:58 Plt Morphology Comment Not Reportable 09/20/17 12:58 RBC Morphology Normal 09/20/17 12:58 Dimorphic RBCs Not Reportable 09/20/17 12:58 Polychromasia Not Reportable 09/20/17 12:58 Hypochromasia Not Reportable 09/20/17 12:58 Poikilocytosis Not Reportable 09/20/17 12:58 Anisocytosis Not Reportable 09/20/17 12:58 Microcytosis Not Reportable 09/20/17 12:58 Macrocytosis Not Reportable 09/20/17 12:58 Spherocytes Not Reportable 09/20/17 12:58 Pappenheimer Bodies Not Reportable 09/20/17 12:58 Sickle Cells Not Reportable 09/20/17 12:58 Target Cells Not Reportable 09/20/17 12:58 Tear Drop Cells Not Reportable 09/20/17 12:58 Ovalocytes Not Reportable 09/20/17 12:58 Helmet Cells Not Reportable 09/20/17 12:58 [place] Bodies Not Reportable 09/20/17 12:58 [place] Rings Not Reportable 09/20/17 12:58 [place] Cells Not Reportable 09/20/17 12:58 Bite Cells Not Reportable 09/20/17 12:58 Crenated Cell Not Reportable 09/20/17 12:58 Elliptocytes Not Reportable 09/20/17 12:58 Acanthocytes (Spur) Not Reportable 09/20/17 12:58 Rouleaux Not Reportable 09/20/17 12:58 Hemoglobin C Crystals Not Reportable 09/20/17 12:58 Schistocytes Not Reportable 09/20/17 12:58 Malaria parasites Not Reportable 09/20/17 12:58 Jose Rafael Bodies Not Reportable 09/20/17 12:58 Hem Pathologist Commnt No 09/20/17 12:58 PT 15.1 Sec. (12.2-14.9) H 09/20/17 12:58 INR 1.13 (0.87-1.13) 09/20/17 12:58 APTT 26.4 Sec. (24.2-36.6) 09/20/17 12:58 D-Dimer 322.8 ng/mlDDU (0-234) H 09/20/17 12:58 Sodium 141 mmol/L (137-145) 09/23/17 07:31 Potassium 4.5 mmol/L (3.6-5.0) 09/23/17 07:31 Chloride 101.2 mmol/L (98-107) 09/23/17 07:31 Carbon Dioxide 33 mmol/L (22-30) H 09/23/17 07:31 Anion Gap 11 mmol/L 09/23/17 07:31 BUN 26 mg/dL (9-20) H 09/23/17 07:31 Creatinine 0.7 mg/dL (0.8-1.5) L 09/23/17 07:31 Estimated GFR > 60 ml/min 09/23/17 07:31 BUN/Creatinine Ratio 37 % 09/23/17 07:31 Glucose 110 mg/dL (75-100) H 09/23/17 07:31 POC Glucose 180 (70-105) H 09/22/17 08:56 Calcium 8.9 mg/dL (8.4-10.2) 09/23/17 07:31 Total Bilirubin 0.30 mg/dL (0.1-1.2) 09/21/17 05:34 Direct Bilirubin < 0.2 mg/dL (0-0.2) 09/20/17 12:58 Indirect Bilirubin 0.1 mg/dL 09/20/17 12:58 AST 18 units/L (5-40) 09/21/17 05:34 ALT 9 units/L (7-56) 09/21/17 05:34 Alkaline Phosphatase 42 units/L (35-129) 09/21/17 05:34 Troponin T < 0.010 ng/mL (0.00-0.029) 09/20/17 18:29 NT-Pro-B Natriuret Pep 1773 pg/mL (0-900) H 09/20/17 12:58 Total Protein 6.5 g/dL (6.3-8.2) 09/21/17 05:34 Albumin 3.0 g/dL (3.9-5) L 09/21/17 05:34 Albumin/Globulin Ratio 0.9 % 09/21/17 05:34 Blood Type O POSITIVE 09/20/17 13:03 Antibody Screen Negative 09/20/17 13:03
[2017-09-23] MEDS ORDERED: PANCREAZE DR 10,500 UNIT FEEDTUBE PRN (15:30)
[2017-09-23] MEDS ORDERED: SODIUM BICARBONATE FEEDTUBE PRN (15:30)
[2017-09-23] MEDS ORDERED: SIMPLE SYRUP FEEDTUBE PRN ×2 (15:30)
--- NOTE | 2017-09-23 18:27 | Gastroenterology Consultation ---
History of Present Illness - Reason for Consult Consult date: 09/23/17 PEG tube care Requesting physician: JEROD PEARL - History of Present Illness The consult is about possible PEG tube malfunction per the patient/family. The patient had the PEG tube placed over a year ago ([place]?) for a hx of dysphagia from a Cspine injury. The patient's tube has been flushed and is able to tolerate meds and feeds. The family was concerned about tube discoloration and mild proximal dilation. There was no leaking noted per nursing. His weight has been stable since the meds were started. Past History Past Medical History: COPD, GERD, other (C spine fracture) Past Surgical History: Other (Ortho) Social history: smoking. denies: alcohol abuse Family history: no significant family history Medications and Allergies Allergies Allergy/AdvReac Type Severity Reaction Status Date / Time guaifenesin [From Mucinex] AdvReac Intermediate Shortness Verified 08/30/17 10: 52 of Breath Home Medications Medication Instructions Recorded Confirmed Last Taken Type ALBUTEROL NEB's [Proventil 0.083% 2.5 mg IH QID 08/30/17 09/20/17 Unknown History NEBS] Cyclobenzaprine [Flexeril 10 MG 10 mg FEEDTUBE TID PRN 08/30/17 09/20/17 Unknown History TAB] Fenofibrate [Tricor] 145 mg FEEDTUBE QDAY 08/30/17 09/20/17 Unknown History Lactulose [Cephulac] 30 ml FEEDTUBE DAILY PRN 08/30/17 09/20/17 Unknown History Omeprazole 40 mg FEEDTUBE DAILY 08/30/17 09/20/17 Unknown History Oxycodone HCl [oxyCODONE TAB] 10 mg PO Q6H PRN 08/30/17 09/20/17 Unknown History Pregabalin [Lyrica] 75 mg FEEDTUBE BID 08/30/17 09/20/17 Unknown History Tamsulosin [Flomax] 0.4 mg FEEDTUBE QDAY 08/30/17 09/20/17 Unknown History Temazepam 30 mg FEEDTUBE HS 08/30/17 09/20/17 Unknown History risperiDONE [RisperDAL] 1 mg FEEDTUBE HS 08/30/17 09/20/17 Unknown History LORazepam [Ativan] 1 mg FEEDTUBE TID PRN #14 tablet 09/02/17 09/20/17 Unknown Rx oxyCODONE [Roxicodone TAB] 10 mg PO Q6H PRN #10 tablet 09/02/17 09/20/17 Unknown Rx Active Meds: Active Medications Acetaminophen (Tylenol) 650 mg PO Q4H PRN PRN Reason: Pain MILD(1-3)/Fever >100.5/BYNUM Last Admin: 09/21/17 15:06 Dose: 650 mg Albuterol/Ipratropium (Duoneb *Not For Prn Use*) 1 ampul IH TIDRT [facility] Last Admin: 09/23/17 13:25 Dose: 1 ampul Lipase/Protease/Amylase (Pancreaze Dr 10,500 Unit) 1 each FEEDTUBE PRN PRN PRN Reason: For Clogged Feeding Tube Bisacodyl (Dulcolax) 10 mg [place] QDAY PRN PRN Reason: Constipation unrelieved by MOM Cyclobenzaprine HCl (Flexeril) 10 mg FEEDTUBE TID PRN PRN Reason: Muscle Spasm Last Admin: 09/23/17 09:27 Dose: 10 mg Fenofibrate (Tricor) 145 mg FEEDTUBE QDAY [facility] Last Admin: 09/23/17 09:27 Dose: 145 mg Heparin Sodium (Porcine) (Heparin) 5,000 unit SUB-Q Q12H [facility] Last Admin: 09/23/17 17:32 Dose: 5,000 unit Levofloxacin/Dextrose (Levaquin 750mg/150ml) 750 mg in 150 mls @ 100 mls/hr IV Q24HR [facility] PRN Reason: Protocol Last Admin: 09/23/17 09:42 Dose: 100 mls/hr Lactulose (Cephulac) 20 gm FEEDTUBE DAILY PRN PRN Reason: Constipation Lorazepam (Ativan) 1 mg FEEDTUBE QID PRN PRN Reason: Anxiety Last Admin: 09/23/17 17:08 Dose: 1 mg Magnesium Hydroxide (Milk Of Magnesia) 30 ml PO Q4H PRN PRN Reason: Constipation Methylprednisolone Sodium Succinate (Solu-Medrol) 40 mg IV Q12H [facility] Last Admin: 09/23/17 17:08 Dose: 40 mg Morphine Sulfate (Morphine) 4 mg IV Q3H PRN PRN Reason: Pain , Severe (7-10) Last Admin: 09/23/17 17:32 Dose: 4 mg Ondansetron HCl (Zofran) 4 mg IV Q8H PRN PRN Reason: N/V unrelieved by Reglan Last Admin: 09/22/17 14:37 Dose: 4 mg Oxycodone HCl (Roxicodone) 10 mg PO Q6H PRN PRN Reason: Pain Last Admin: 09/23/17 13:19 Dose: 10 mg Pantoprazole (Protonix) 40 mg FEEDTUBE DAILY [facility] Last Admin: 09/23/17 09:27 Dose: 40 mg Pregabalin (Lyrica) 75 mg FEEDTUBE BID [facility] Last Admin: 09/23/17 09:27 Dose: 75 mg Risperidone (Risperdal) 1 mg FEEDTUBE HS [facility] Last Admin: 09/22/17 21:26 Dose: 1 mg Simple Syrup (Simple Syrup) 15 ml FEEDTUBE PRN PRN PRN Reason: Hypoglycemia Simple Syrup (Simple Syrup) 30 ml FEEDTUBE PRN PRN PRN Reason: Hypoglycemia Sodium Bicarbonate (Sodium Bicarbonate) 325 mg FEEDTUBE PRN PRN PRN Reason: For Clogged Feeding Tube Tamsulosin HCl (Flomax) 0.4 mg PO QDAY [facility] Last Admin: 09/23/17 09:27 Dose: 0.4 mg Zolpidem Tartrate (Ambien) 5 mg PO QHS PRN PRN Reason: Insomnia Last Admin: 09/22/17 23:50 Dose: 5 mg Review of Systems - Review of Systems All systems: negative (as noted in the HPI.) Exam - Constitutional Vital Signs: Temp Pulse Resp BP Pulse Ox 97.8 F 86 18 139/65 95 09/23/17 08:47 09/23/17 09:33 09/23/17 09:33 09/23/17 08:47 09/23/17 08:47 General appearance: no acute distress - EENT Eyes: PERRL, EOM intact ENT: hearing intact, poor dentition - Neck Neck: supple - Respiratory Respiratory effort: normal Respiratory: bilateral: CTA - Cardiovascular Rhythm: regular Heart Sounds: Present: S1 & S2 Extremities: no ischemia, No edema - Gastrointestinal General gastrointestinal: Present: soft, non-tender, non-distended, other (PEG site clean dry and intact; no blood; no leak with flush) - Integumentary Integumentary: Present: clear, warm, dry - Neurologic Neurological: alert and oriented x3 - Labs CBC & Chem 7: 09/23/17 07:31 09/23/17 07:31 Lab Results: Laboratory Results - last 24 hr 09/23/17 09/23/17 09/23/17 07:31 07:31 17:25 WBC 10.0 RBC 4.15 Hgb 11.4 L Hct 35.4 L MCV 85 MCH 28 MCHC 32 RDW 15.1 Plt Count 228 Sodium 141 Potassium 4.5 Chloride 101.2 Carbon Dioxide 33 H Anion Gap 11 BUN 26 H Creatinine 0.7 L Estimated GFR > 60 BUN/Creatinine Ratio 37 Glucose 110 H POC Glucose 82 Calcium 8.9 Assessment and Plan - Patient Problems (1) PEG tube malfunction Current Visit: Yes Status: Acute Plan to address problem: - The PEG is working well with normal/expected plastic discoloration. - No indication for change of PEG tube at present, and nursing taking good care of the device. - Will sign off; please call if needed.
[2017-09-23] MEDS: RisperDAL FEEDTUBE SCH (22:29)
[2017-09-23] MEDS: AMBIEN PO PRN (22:31)
[2017-09-24] MEDS: ATIVAN FEEDTUBE PRN ×3 (02:18→14:44)
[2017-09-24] MEDS: MORPHINE IV PRN ×2 (04:41→08:29)
[2017-09-24] MEDS: HEPARIN SUB-Q SCH ×2 (05:44→17:50)
[2017-09-24 06:14] LABS: Hematocrit 36.2 % (35.5-45.6); Hemoglobin 11.8 gm/dl (11.8-15.2); Mean Corpuscular HGB Conc 33 % (32-34); Mean Corpuscular Hemoglobin 28 pg (28-32); Mean Corpuscular Volume 84 fl (84-94); Platelet Count 201 K/mm3 (140-440); Red Blood Count 4.29 M/mm3 (3.65-5.03); Red Cell Distribution Width 14.9 % (13.2-15.2); White Blood Count 6.3 K/mm3 (4.5-11.0)
[2017-09-24 06:34] LABS: Anion Gap 12 mmol/L; BUN/Creatinine Ratio 31; Blood Urea Nitrogen 28 mg/dL (9-20); Carbon Dioxide 33 mmol/L (22-30); Chloride 101.9 mmol/L (98-107); Glucose 95 mg/dL (75-100); Potassium 4.3 mmol/L (3.6-5.0); Sodium 143 mmol/L (137-145)
[2017-09-24] MEDS: DUONEB *Not for PRN Use IH SCH ×4 (07:38→20:43)
[2017-09-24] MEDS: FLEXERIL FEEDTUBE PRN ×2 (08:29→17:00)
--- NOTE | 2017-09-24 09:28 | Discharge Summary ---
Providers - Providers Date of Admission: 09/20/17 23:23 Attending physician: CANDELARIA SHEPARD MD 09/21/17 11:25 Consult to Dietitian/Nutrition [CONS] Routine Physician Instructions: Reason For Exam: For peg Tube feeding Reason for Consult: Pt needs oral supplement 09/21/17 15:42 Physical Therapy Evaluation and Treat [CONS] Routine Comment: Reason For Exam: limited range of motion 09/23/17 10:14 Consult to Physician [CONS] Routine Consulting Provider: MARQUIS VAN Reason For Exam: Gtube scheduled change due Place consult to:: Mary MCKEON Notified:: OFFICE Phone number called:: [phone] Was contact made?: Yes If yes, spoke with:: MALINDA Time called:: 11:26 Comment:: PAT NOTIFIED Primary care physician: DARCIE KWAN Hospitalization Reason for admission: copd exacerbation Condition: Stable Hospital course: Patient is a 62 yo man with h/o GERD, BPH, DLP, tobacco dependency and c-spine injury resulting in quadiplegia, gtube placement, anxiety who presents with sob. CXR read as emphysema and no acute findings. -Acute exacerbation of COPD: Patient started on iv steroids, abx, nebs and improving. sitting up. STEROIDS TAPERED. During last admission the patient was recommended to go to SNF but refused -FTT: De Icer Kit Assembler consulted- PT SEEN BY Gregory REYNOSO working appropriately -Functional quadriplegia: physical therapy -Anxiety, chronic and worsening: ativan-Pt requesting more anxiety medications and pain meds, Switched to PO meds.increase ativan to qid instead of tid -Tobacco dependency: advised stopping-strongly encouraged -moderate malnutrition, poa: full stack software engineer consulted -DVT/GI prophy -Plan discussed with patient Awaiting insurance clearance for placement- They denied this patient placement and he will be discharged with home health despite his desire to go to SNF this time around Disposition: [id number] HOME UNDER [facility] Time spent for discharge: 35 mins Core Measure Documentation - Palliative Care Palliative Care/ Comfort Measures: Not Applicable - Core Measures Any of the following diagnoses?: none - VTE Discharge Requirements Deep Vein Thrombosis/Pulmonary Embolism Present on Admission: No Exam - Physical Exam Narrative exam: GEN: thin frail, NAD, AWAKE, ALERT, ORIENTATED x 3 HEENT: NCAT, EOMI, PERRL, OP Clear, old trach site NECK: supple, no adenopathy, no thyromegaly, no JVD CVS/HEART: RRR, NORMAL S1S2, NO JVD, pulses present bilaterally CHEST/LUNGS: CTA B, Symmetrical chest expansion, good air entry bilaterally GI/Abdomen: soft, peg tube, NTND, good bowel sounds, no guarding or rebound /Bladder: no suprapubic tenderness, no CVA or paraspinal tenderness EXT/Skin: no c/c/e, no obvious rash MSK: lrom x 4 ext Neuro: CN 2-12 grossly intact, no new focal deficits Psych: MOOD STABLE - Constitutional Vitals: Temp Pulse Resp BP Pulse Ox 97.8 F 89 18 132/64 87 09/24/17 08:29 09/24/17 08:44 09/24/17 08:44 09/24/17 08:29 09/24/17 08:29 Plan Activity: advance as tolerated, fall precautions Diet: per dietitian instruction Special Instructions: record daily BP diary Follow up with: DARCIE KWAN MD [Primary Care Provider] - 3-5 Days ROSALINA ENCISO MD [Staff Physician] - 7 Days Prescriptions: Levofloxacin [Levaquin] 750 mg PO QDAY #3 tablet LORazepam [Ativan] 1 mg FEEDTUBE QID PRN #14 tablet PRN Reason: Anxiety Oxycodone HCl [oxyCODONE TAB] 10 mg PO Q6H PRN #14 tablet PRN Reason: Pain Prednisone [predniSONE 10 mg (6-Day Pack, 21 Tabs)] 10 mg PO .TAPER #1 tab.ds.pk risperiDONE [RisperDAL] 1 mg FEEDTUBE HS #30 tablet Temazepam 30 mg FEEDTUBE HS PRN #14 capsule PRN Reason: Insomnia Ipratropium/Albuterol Sulfate [DUONEB *Not for PRN Use*] 1 ampul IH TIDRT #30 ampul.neb
[2017-09-24] MEDS: LYRICA FEEDTUBE SCH ×2 (11:38→21:59)
[2017-09-24] MEDS: TRICOR FEEDTUBE SCH (11:39)
[2017-09-24] MEDS: ROXICODONE PO PRN ×2 (11:39→17:49)
[2017-09-24] MEDS: FLOMAX PO SCH (11:39)
[2017-09-24] MEDS: PROTONIX FEEDTUBE SCH (11:41)
[2017-09-24] MEDS: LEVAQUIN 750MG/150ML 750 MG/150 ML BAG IV SCH (11:41)
[2017-09-24] MEDS: ZOFRAN IV PRN (14:51)
--- NOTE | 2017-09-24 17:10 | Progress Note ---
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 CXR read as emphysema and no acute findings. -AECOPD: Patient started on iv steroids, abx, nebs and improving. sitting up. During last admission the patient was recommended to go to SNF but refused -FTT: Hog Buyer consulted- PT SEEN BY ANGELES Tube working appropriately -Functional quadriplegia: physical therapy -Anxiety, chronic and worsening: ativan-Pt requesting more anxiety medications and pain meds, Switched to PO meds.increase ativan to qid instead of tid -Tobacco dependency: advised stopping-strongly encouraged -moderate malnutrition, poa: grinder lap consulted -DVT/GI prophy History Interval history: PATIENT SEEN AND EXAMINED TODAY IN NO ACUTE DISTRESS Hospitalist Physical - Physical exam Narrative exam: GEN: thin frail, NAD, AWAKE, ALERT, ORIENTATED x 3 HEENT: NCAT, EOMI, PERRL, OP Clear, old trach site NECK: supple, no adenopathy, no thyromegaly, no JVD CVS/HEART: RRR, NORMAL S1S2, NO JVD, pulses present bilaterally CHEST/LUNGS: CTA B, Symmetrical chest expansion, good air entry bilaterally GI/Abdomen: soft, peg tube, NTND, good bowel sounds, no guarding or rebound /Bladder: no suprapubic tenderness, no CVA or paraspinal tenderness EXT/Skin: no c/c/e, no obvious rash MSK: lrom x 4 ext Neuro: CN 2-12 grossly intact, no new focal deficits Psych: MOOD STABLE - Constitutional Vitals: Temp Pulse Resp BP Pulse Ox 97.8 F 89 16 132/64 87 09/24/17 08:29 09/24/17 08:44 09/24/17 12:39 09/24/17 08:29 09/24/17 08:29 Results - Labs CBC & Chem 7: 09/24/17 05:49 09/24/17 05:49 Labs: Laboratory Last Values WBC 6.3 K/mm3 (4.5-11.0) 09/24/17 05:49 RBC 4.29 M/mm3 (3.65-5.03) 09/24/17 05:49 Hgb 11.8 gm/dl (11.8-15.2) 09/24/17 05:49 Hct 36.2 % (35.5-45.6) 09/24/17 05:49 MCV 84 fl (84-94) 09/24/17 05:49 MCH 28 pg (28-32) 09/24/17 05:49 MCHC 33 % (32-34) 09/24/17 05:49 RDW 14.9 % (13.2-15.2) 09/24/17 05:49 Plt Count 201 K/mm3 (140-440) 09/24/17 05:49 Lymph % (Auto) 20.3 % (13.4-35.0) 09/21/17 05:34 [place] % (Auto) 8.7 % (0.0-7.3) H 09/21/17 05:34 Eos % (Auto) 0.1 % (0.0-4.3) 09/21/17 05:34 Baso % (Auto) 0.1 % (0.0-1.8) 09/21/17 05:34 Lymph # 1.1 K/mm3 (1.2-5.4) L 09/21/17 05:34 [place] # 0.5 K/mm3 (0.0-0.8) 09/21/17 05:34 Eos # 0.0 K/mm3 (0.0-0.4) 09/21/17 05:34 Baso # 0.0 K/mm3 (0.0-0.1) 09/21/17 05:34 Add Manual Diff Complete 09/20/17 12:58 Total Counted 100 09/20/17 12:58 Seg Neutrophils % 70.8 % (40.0-70.0) H 09/21/17 05:34 Seg Neuts % (Manual) 95.0 % (40.0-70.0) H 09/20/17 12:58 Band Neutrophils % 0 % 09/20/17 12:58 Lymphocytes % (Manual) 2.0 % (13.4-35.0) L 09/20/17 12:58 Reactive Lymphs % (Man) 0 % 09/20/17 12:58 Monocytes % (Manual) 3.0 % (0.0-7.3) 09/20/17 12:58 Eosinophils % (Manual) 0 % (0.0-4.3) 09/20/17 12:58 Basophils % (Manual) 0 % (0.0-1.8) 09/20/17 12:58 Metamyelocytes % 0 % 09/20/17 12:58 Myelocytes % 0 % 09/20/17 12:58 Promyelocytes % 0 % 09/20/17 12:58 Blast Cells % 0 % 09/20/17 12:58 Nucleated RBC % Not Reportable 09/20/17 12:58 Seg Neutrophils # 3.9 K/mm3 (1.8-7.7) 09/21/17 05:34 Seg Neutrophils # Man 11.0 K/mm3 (1.8-7.7) H 09/20/17 12:58 Band Neutrophils # 0.0 K/mm3 09/20/17 12:58 Lymphocytes # (Manual) 0.2 K/mm3 (1.2-5.4) L 09/20/17 12:58 Abs React Lymphs (Man) 0.0 K/mm3 09/20/17 12:58 Monocytes # (Manual) 0.3 K/mm3 (0.0-0.8) 09/20/17 12:58 Eosinophils # (Manual) 0.0 K/mm3 (0.0-0.4) 09/20/17 12:58 Basophils # (Manual) 0.0 K/mm3 (0.0-0.1) 09/20/17 12:58 Metamyelocytes # 0.0 K/mm3 09/20/17 12:58 Myelocytes # 0.0 K/mm3 09/20/17 12:58 Promyelocytes # 0.0 K/mm3 09/20/17 12:58 Blast Cells # 0.0 K/mm3 09/20/17 12:58 WBC Morphology Not Reportable 09/20/17 12:58 Hypersegmented Neuts Not Reportable 09/20/17 12:58 Hyposegmented Neuts Not Reportable 09/20/17 12:58 Hypogranular Neuts Not Reportable 09/20/17 12:58 Smudge Cells Not Reportable 09/20/17 12:58 Toxic Granulation Not Reportable 09/20/17 12:58 Toxic Vacuolation Not Reportable 09/20/17 12:58 Dohle Bodies Not Reportable 09/20/17 12:58 Pelger-Huet Anomaly Not Reportable 09/20/17 12:58 Fiona Rods Not Reportable 09/20/17 12:58 Platelet Estimate Appears normal 09/20/17 12:58 Clumped Platelets Not Reportable 09/20/17 12:58 Plt Clumps, EDTA Not Reportable 09/20/17 12:58 Large Platelets Not Reportable 09/20/17 12:58 Giant Platelets Not Reportable 09/20/17 12:58 Platelet Satelliting Not Reportable 09/20/17 12:58 Plt Morphology Comment Not Reportable 09/20/17 12:58 RBC Morphology Normal 09/20/17 12:58 Dimorphic RBCs Not Reportable 09/20/17 12:58 Polychromasia Not Reportable 09/20/17 12:58 Hypochromasia Not Reportable 09/20/17 12:58 Poikilocytosis Not Reportable 09/20/17 12:58 Anisocytosis Not Reportable 09/20/17 12:58 Microcytosis Not Reportable 09/20/17 12:58 Macrocytosis Not Reportable 09/20/17 12:58 Spherocytes Not Reportable 09/20/17 12:58 Pappenheimer Bodies Not Reportable 09/20/17 12:58 Sickle Cells Not Reportable 09/20/17 12:58 Target Cells Not Reportable 09/20/17 12:58 Tear Drop Cells Not Reportable 09/20/17 12:58 Ovalocytes Not Reportable 09/20/17 12:58 Helmet Cells Not Reportable 09/20/17 12:58 [place] Bodies Not Reportable 09/20/17 12:58 [place] Rings Not Reportable 09/20/17 12:58 [place] Cells Not Reportable 09/20/17 12:58 Bite Cells Not Reportable 09/20/17 12:58 Crenated Cell Not Reportable 09/20/17 12:58 Elliptocytes Not Reportable 09/20/17 12:58 Acanthocytes (Spur) Not Reportable 09/20/17 12:58 Rouleaux Not Reportable 09/20/17 12:58 Hemoglobin C Crystals Not Reportable 09/20/17 12:58 Schistocytes Not Reportable 09/20/17 12:58 Malaria parasites Not Reportable 09/20/17 12:58 Jose Rafael Bodies Not Reportable 09/20/17 12:58 Hem Pathologist Commnt No 09/20/17 12:58 PT 15.1 Sec. (12.2-14.9) H 09/20/17 12:58 INR 1.13 (0.87-1.13) 09/20/17 12:58 APTT 26.4 Sec. (24.2-36.6) 09/20/17 12:58 D-Dimer 322.8 ng/mlDDU (0-234) H 09/20/17 12:58 Sodium 143 mmol/L (137-145) 09/24/17 05:49 Potassium 4.3 mmol/L (3.6-5.0) 09/24/17 05:49 Chloride 101.9 mmol/L (98-107) 09/24/17 05:49 Carbon Dioxide 33 mmol/L (22-30) H 09/24/17 05:49 Anion Gap 12 mmol/L 09/24/17 05:49 BUN 28 mg/dL (9-20) H 09/24/17 05:49 Creatinine 0.9 mg/dL (0.8-1.5) 09/24/17 05:49 Estimated GFR > 60 ml/min 09/24/17 05:49 BUN/Creatinine Ratio 31 % 09/24/17 05:49 Glucose 95 mg/dL (75-100) 09/24/17 05:49 POC Glucose 82 (70-105) 09/23/17 17:25 Calcium 9.0 mg/dL (8.4-10.2) 09/24/17 05:49 Total Bilirubin 0.30 mg/dL (0.1-1.2) 09/21/17 05:34 Direct Bilirubin < 0.2 mg/dL (0-0.2) 09/20/17 12:58 Indirect Bilirubin 0.1 mg/dL 09/20/17 12:58 AST 18 units/L (5-40) 09/21/17 05:34 ALT 9 units/L (7-56) 09/21/17 05:34 Alkaline Phosphatase 42 units/L (35-129) 09/21/17 05:34 Troponin T < 0.010 ng/mL (0.00-0.029) 09/20/17 18:29 NT-Pro-B Natriuret Pep 1773 pg/mL (0-900) H 09/20/17 12:58 Total Protein 6.5 g/dL (6.3-8.2) 09/21/17 05:34 Albumin 3.0 g/dL (3.9-5) L 09/21/17 05:34 Albumin/Globulin Ratio 0.9 % 09/21/17 05:34 Blood Type O POSITIVE 09/20/17 13:03 Antibody Screen Negative 09/20/17 13:03
[2017-09-24] MEDS: RisperDAL FEEDTUBE SCH (21:59)
[2017-09-25] MEDS: ROXICODONE PO PRN ×2 (00:14→06:03)
[2017-09-25] MEDS: ATIVAN FEEDTUBE PRN ×3 (00:14→12:49)
[2017-09-25] MEDS: HEPARIN SUB-Q SCH (06:08)
[2017-09-25 07:07] LABS: Hematocrit 36.4 % (35.5-45.6); Hemoglobin 12.4 gm/dl (11.8-15.2); Mean Corpuscular HGB Conc 34 % (32-34); Mean Corpuscular Hemoglobin 29 pg (28-32); Mean Corpuscular Volume 85 fl (84-94); Platelet Count 197 K/mm3 (140-440); Red Blood Count 4.31 M/mm3 (3.65-5.03); Red Cell Distribution Width 15.9 % (13.2-15.2); White Blood Count 10.8 K/mm3 (4.5-11.0)
[2017-09-25 07:24] LABS: Anion Gap 13 mmol/L; BUN/Creatinine Ratio 41; Blood Urea Nitrogen 29 mg/dL (9-20); Calcium 8.9 mg/dL (8.4-10.2); Carbon Dioxide 32 mmol/L (22-30); Chloride 102.6 mmol/L (98-107); Glucose 95 mg/dL (75-100); Potassium 4.3 mmol/L (3.6-5.0); Sodium 143 mmol/L (137-145)
[2017-09-25] MEDS: DUONEB *Not for PRN Use IH SCH ×2 (07:56→13:26)
[2017-09-25 08:02] VITALS: BP 113/55
[2017-09-25] MEDS: LEVAQUIN 750MG/150ML 750 MG/150 ML BAG IV SCH (09:50)
[2017-09-25] MEDS: PROTONIX FEEDTUBE SCH (09:50)
[2017-09-25] MEDS: LYRICA FEEDTUBE SCH (09:50)
[2017-09-25] MEDS: TRICOR FEEDTUBE SCH (09:51)
[2017-09-25] MEDS: FLEXERIL FEEDTUBE PRN (09:51)
[2017-09-25] MEDS: FLOMAX PO SCH (09:51)
--- NOTE | 2017-09-25 10:02 | Progress Note ---
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 CXR read as emphysema and no acute findings. -AECOPD: Patient started on iv steroids, abx, nebs and improving. sitting up. During last admission the patient was recommended to go to SNF but refused -FTT: Franchise Business Consultant consulted- PT SEEN BY ANGELES, Tube working appropriately -Functional quadriplegia: physical therapy -Anxiety, chronic and worsening: ativan-Pt requesting more anxiety medications and pain meds, Switched to PO meds.increase ativan to qid instead of tid -Tobacco dependency: advised stopping-strongly encouraged -moderate malnutrition, poa: visual merchandising assistant consulted -DVT/GI prophy -Plan discussed with patient Awaiting insurance clearance for placement Hospitalist Physical - Constitutional Vitals: Temp Pulse Resp BP Pulse Ox 97.6 F 67 18 113/55 97 09/25/17 07:59 09/25/17 07:59 09/25/17 07:59 09/25/17 07:59 09/25/17 07:59 Results - Labs CBC & Chem 7: 09/25/17 06:35 09/25/17 06:35 Labs: Laboratory Last Values WBC 10.8 K/mm3 (4.5-11.0) 09/25/17 06:35 RBC 4.31 M/mm3 (3.65-5.03) 09/25/17 06:35 Hgb 12.4 gm/dl (11.8-15.2) 09/25/17 06:35 Hct 36.4 % (35.5-45.6) 09/25/17 06:35 MCV 85 fl (84-94) 09/25/17 06:35 MCH 29 pg (28-32) 09/25/17 06:35 MCHC 34 % (32-34) 09/25/17 06:35 RDW 15.9 % (13.2-15.2) H 09/25/17 06:35 Plt Count 197 K/mm3 (140-440) 09/25/17 06:35 Lymph % (Auto) 20.3 % (13.4-35.0) 09/21/17 05:34 [place] % (Auto) 8.7 % (0.0-7.3) H 09/21/17 05:34 Eos % (Auto) 0.1 % (0.0-4.3) 09/21/17 05:34 Baso % (Auto) 0.1 % (0.0-1.8) 09/21/17 05:34 Lymph # 1.1 K/mm3 (1.2-5.4) L 09/21/17 05:34 [place] # 0.5 K/mm3 (0.0-0.8) 09/21/17 05:34 Eos # 0.0 K/mm3 (0.0-0.4) 09/21/17 05:34 Baso # 0.0 K/mm3 (0.0-0.1) 09/21/17 05:34 Add Manual Diff Complete 09/20/17 12:58 Total Counted 100 09/20/17 12:58 Seg Neutrophils % 70.8 % (40.0-70.0) H 09/21/17 05:34 Seg Neuts % (Manual) 95.0 % (40.0-70.0) H 09/20/17 12:58 Band Neutrophils % 0 % 09/20/17 12:58 Lymphocytes % (Manual) 2.0 % (13.4-35.0) L 09/20/17 12:58 Reactive Lymphs % (Man) 0 % 09/20/17 12:58 Monocytes % (Manual) 3.0 % (0.0-7.3) 09/20/17 12:58 Eosinophils % (Manual) 0 % (0.0-4.3) 09/20/17 12:58 Basophils % (Manual) 0 % (0.0-1.8) 09/20/17 12:58 Metamyelocytes % 0 % 09/20/17 12:58 Myelocytes % 0 % 09/20/17 12:58 Promyelocytes % 0 % 09/20/17 12:58 Blast Cells % 0 % 09/20/17 12:58 Nucleated RBC % Not Reportable 09/20/17 12:58 Seg Neutrophils # 3.9 K/mm3 (1.8-7.7) 09/21/17 05:34 Seg Neutrophils # Man 11.0 K/mm3 (1.8-7.7) H 09/20/17 12:58 Band Neutrophils # 0.0 K/mm3 09/20/17 12:58 Lymphocytes # (Manual) 0.2 K/mm3 (1.2-5.4) L 09/20/17 12:58 Abs React Lymphs (Man) 0.0 K/mm3 09/20/17 12:58 Monocytes # (Manual) 0.3 K/mm3 (0.0-0.8) 09/20/17 12:58 Eosinophils # (Manual) 0.0 K/mm3 (0.0-0.4) 09/20/17 12:58 Basophils # (Manual) 0.0 K/mm3 (0.0-0.1) 09/20/17 12:58 Metamyelocytes # 0.0 K/mm3 09/20/17 12:58 Myelocytes # 0.0 K/mm3 09/20/17 12:58 Promyelocytes # 0.0 K/mm3 09/20/17 12:58 Blast Cells # 0.0 K/mm3 09/20/17 12:58 WBC Morphology Not Reportable 09/20/17 12:58 Hypersegmented Neuts Not Reportable 09/20/17 12:58 Hyposegmented Neuts Not Reportable 09/20/17 12:58 Hypogranular Neuts Not Reportable 09/20/17 12:58 Smudge Cells Not Reportable 09/20/17 12:58 Toxic Granulation Not Reportable 09/20/17 12:58 Toxic Vacuolation Not Reportable 09/20/17 12:58 Dohle Bodies Not Reportable 09/20/17 12:58 Pelger-Huet Anomaly Not Reportable 09/20/17 12:58 Fiona Rods Not Reportable 09/20/17 12:58 Platelet Estimate Appears normal 09/20/17 12:58 Clumped Platelets Not Reportable 09/20/17 12:58 Plt Clumps, EDTA Not Reportable 09/20/17 12:58 Large Platelets Not Reportable 09/20/17 12:58 Giant Platelets Not Reportable 09/20/17 12:58 Platelet Satelliting Not Reportable 09/20/17 12:58 Plt Morphology Comment Not Reportable 09/20/17 12:58 RBC Morphology Normal 09/20/17 12:58 Dimorphic RBCs Not Reportable 09/20/17 12:58 Polychromasia Not Reportable 09/20/17 12:58 Hypochromasia Not Reportable 09/20/17 12:58 Poikilocytosis Not Reportable 09/20/17 12:58 Anisocytosis Not Reportable 09/20/17 12:58 Microcytosis Not Reportable 09/20/17 12:58 Macrocytosis Not Reportable 09/20/17 12:58 Spherocytes Not Reportable 09/20/17 12:58 Pappenheimer Bodies Not Reportable 09/20/17 12:58 Sickle Cells Not Reportable 09/20/17 12:58 Target Cells Not Reportable 09/20/17 12:58 Tear Drop Cells Not Reportable 09/20/17 12:58 Ovalocytes Not Reportable 09/20/17 12:58 Helmet Cells Not Reportable 09/20/17 12:58 [place] Bodies Not Reportable 09/20/17 12:58 [place] Rings Not Reportable 09/20/17 12:58 [place] Cells Not Reportable 09/20/17 12:58 Bite Cells Not Reportable 09/20/17 12:58 Crenated Cell Not Reportable 09/20/17 12:58 Elliptocytes Not Reportable 09/20/17 12:58 Acanthocytes (Spur) Not Reportable 09/20/17 12:58 Rouleaux Not Reportable 09/20/17 12:58 Hemoglobin C Crystals Not Reportable 09/20/17 12:58 Schistocytes Not Reportable 09/20/17 12:58 Malaria parasites Not Reportable 09/20/17 12:58 Jose Rafael Bodies Not Reportable 09/20/17 12:58 Hem Pathologist Commnt No 09/20/17 12:58 PT 15.1 Sec. (12.2-14.9) H 09/20/17 12:58 INR 1.13 (0.87-1.13) 09/20/17 12:58 APTT 26.4 Sec. (24.2-36.6) 09/20/17 12:58 D-Dimer 322.8 ng/mlDDU (0-234) H 09/20/17 12:58 Sodium 143 mmol/L (137-145) 09/25/17 06:35 Potassium 4.3 mmol/L (3.6-5.0) 09/25/17 06:35 Chloride 102.6 mmol/L (98-107) 09/25/17 06:35 Carbon Dioxide 32 mmol/L (22-30) H 09/25/17 06:35 Anion Gap 13 mmol/L 09/25/17 06:35 BUN 29 mg/dL (9-20) H 09/25/17 06:35 Creatinine 0.7 mg/dL (0.8-1.5) L 09/25/17 06:35 Estimated GFR > 60 ml/min 09/25/17 06:35 BUN/Creatinine Ratio 41 % 09/25/17 06:35 Glucose 95 mg/dL (75-100) 09/25/17 06:35 POC Glucose 82 (70-105) 09/23/17 17:25 Calcium 8.9 mg/dL (8.4-10.2) 09/25/17 06:35 Total Bilirubin 0.30 mg/dL (0.1-1.2) 09/21/17 05:34 Direct Bilirubin < 0.2 mg/dL (0-0.2) 09/20/17 12:58 Indirect Bilirubin 0.1 mg/dL 09/20/17 12:58 AST 18 units/L (5-40) 09/21/17 05:34 ALT 9 units/L (7-56) 09/21/17 05:34 Alkaline Phosphatase 42 units/L (35-129) 09/21/17 05:34 Troponin T < 0.010 ng/mL (0.00-0.029) 09/20/17 18:29 NT-Pro-B Natriuret Pep 1773 pg/mL (0-900) H 09/20/17 12:58 Total Protein 6.5 g/dL (6.3-8.2) 09/21/17 05:34 Albumin 3.0 g/dL (3.9-5) L 09/21/17 05:34 Albumin/Globulin Ratio 0.9 % 09/21/17 05:34 Blood Type O POSITIVE 09/20/17 13:03 Antibody Screen Negative 09/20/17 13:03
[2017-09-25] MEDS: ZOFRAN IV PRN (10:55)
== END 2017-09-25 16:50 | disposition home health service (06) | DRG 190 ==
LOC: ED 11:30 → 3A 23:23
PROVIDERS: ADMIT Internal Medicine; ATTEND Internal Medicine
PROC: 3E0234Z Introduction of Serum, Toxoid and Vaccine into Muscle, Percutaneous Approach (ICD-10-PCS; principal; 2017-09-21)
DX: J44.1 Chronic obstructive pulmonary disease with (acute) exacerbation (principal); R53.2 Functional quadriplegia; E44.0 Moderate protein-calorie malnutrition; K21.9 Gastro-esophageal reflux disease without esophagitis; N40.0 Benign prostatic hyperplasia without lower urinary tract symptoms; F17.200 Nicotine dependence, unspecified, uncomplicated; M19.90 Unspecified osteoarthritis, unspecified site; G89.29 Other chronic pain; M54.9 Dorsalgia, unspecified; M54.2 Cervicalgia; I50.9 Heart failure, unspecified; F41.1 Generalized anxiety disorder; E78.5 Hyperlipidemia, unspecified; G62.9 Polyneuropathy, unspecified; Z93.1 Gastrostomy status; Z23 Encounter for immunization; Z71.6 Tobacco abuse counseling; Z87.01 Personal history of pneumonia (recurrent); Z79.899 Other long term (current) drug therapy; Z68.23 Body mass index [BMI] 23.0-23.9, adult; R62.7 Adult failure to thrive
CPT/HCPCS: 36415; 71010; 80048; 80053; 80074; 82962; 83880; 84484; 85007; 85025; 85027; 85379; 85610; 85730; 86850; 86900; 86901; 90686; 93005; 93010; 94640; 96374; 96375; 96376; G8978-GP; G8979-GP; J1644; J1940; J1956; J2060; J2270; J2405; J2920; J7042